=== PATIENT | female | born 1970 | race Two or more races ===

== ENCOUNTER 2024-12-15 14:23 | Outpatient (RCR) | payer MEDICAID, SELFPAY | END 2024-12-16 23:59 | disposition home or self-care (01) | LOC: SCTC 14:23 | PROVIDERS: PCP Family Medicine; Referring Provider Nurse Practitioner Family; Visit Provider Nurse Practitioner Family | DX: D64.9 Anemia, unspecified (principal); E83.52 Hypercalcemia; Z85.3 Personal history of malignant neoplasm of breast; Z90.12 Acquired absence of left breast and nipple; Z63.4 Disappearance and death of family member; E11.22 Type 2 diabetes mellitus with diabetic chronic kidney disease; N18.9 Chronic kidney disease, unspecified | CPT/HCPCS: 99212; G0463 ==

== ENCOUNTER → 2025-01-20 | Outpatient (CLI) | payer MEDICAID, SELFPAY ==
--- NOTE | 2025-01-20 10:30 | XR_ITS ---
Examination: Breast ultrasound, unilateral, right complete Date and time of exam: January 20, 2025 1014 hours INDICATIONS: Breast sonography 07/29/2024 retroareolar oval mass with breast biopsy marker 12 x 12 mm, right breast Technique: Real-time harrell scale ultrasonographic imaging performed right breast including all 4 quadrants as well as nipple retroareolar and axillary region. Findings: 4:00 oval mass lobular margins 4 x 4 millimeter 6:00 oval mass lobular margins 4 x 3 mm 9:00 oval mass circumscribed 4 x 3 mm 10:00 cyst 6 x 5 mm IMPRESSION: BI-RADS Category 3: Probably benign findings One additional 6 month right breast sonogram follow-up is needed to document stability of multiple solid nodules
== END | disposition home or self-care (01) ==
LOC: CDIM 09:57
PROVIDERS: PCP Family Medicine; Referring Provider Nurse Practitioner Family; Visit Provider Nurse Practitioner Family
DX: N63.15 Unspecified lump in the right breast, overlapping quadrants (principal); N63.14 Unspecified lump in the right breast, lower inner quadrant; C50.412 Malignant neoplasm of upper-outer quadrant of left female breast
CPT/HCPCS: 76641

== ENCOUNTER 2025-02-09 14:15 | Outpatient (RCR) | payer MEDICAID, SELFPAY | END 2025-02-13 23:59 | disposition home or self-care (01) | LOC: SCTC 14:15 | PROVIDERS: PCP Family Medicine; Referring Provider Nurse Practitioner Family; Visit Provider Nurse Practitioner Family | DX: C50.412 Malignant neoplasm of upper-outer quadrant of left female breast (principal); Z08 Encounter for follow-up examination after completed treatment for malignant neoplasm; Z85.3 Personal history of malignant neoplasm of breast; Z90.12 Acquired absence of left breast and nipple; Z86.2 Personal history of diseases of the blood and blood-forming organs and certain disorders involving the immune mechanism | CPT/HCPCS: 99212; G0463 ==

== ENCOUNTER 2025-10-01 10:40 | Inpatient (IN) | payer MEDICAID, SELFPAY ==
[2025-10-01] VITALS (8 sets, daily range): BP systolic 120–146; BP diastolic 67–87; PULSE 75–125; RESP 13–99; TEMP 36.1–36.9; O2SAT 96–99; BMI 32.8
--- NOTE | 2025-10-01 10:52 | PD.EDNEURO ---
Neuro Symptoms Deficit-RME/HPI General Chief Complaint: Headache Stated Complaint: LEFT SIDE HEADACHE/NECK SINCE 2299, LEFT HAND NUMB Time Seen by Provider: 10/01/25 11:00 Arrival date/time: 10/01/25 10:40 RME / HPI RME / HPI Narrative: See [facility] for Dr. Mendoza's HPI Documentation. Related Data Home Medications ?Medication ?Instructions ?Recorded ?Confirmed lovastatin 20 mg tablet 20 mg PO HS #0 tabs 10/21/17 10/01/25 allopurinol 300 mg tablet 300 mg PO QDAY 12/25/22 10/01/25 ascorbic acid (vitamin C) 500 mg 500 mg PO QDAY 12/25/22 10/01/25 tablet (Vitamin C) gemfibrozil 600 mg tablet 600 mg PO QDAY 12/25/22 10/01/25 linaclotide 145 mcg capsule 145 mcg PO QDAY 12/25/22 10/01/25 (Linzess) losartan 50 mg tablet 50 mg PO QDAY 12/25/22 10/01/25 vitamin E 100 unit tablet 100 unit PO QDAY 12/25/22 10/01/25 bisoprolol fumarate 5 mg tablet 2.5 mg PO DAILY 10/01/25 10/01/25 dapagliflozin propanediol 10 mg 10 mg PO DAILY 10/01/25 10/01/25 tablet (Farxiga) ergocalciferol (vitamin D2) 1,250 50,000 unit PO QWEEK 10/01/25 10/01/25 mcg (50,000 unit) capsule ferrous sulfate 325 mg (65 mg 325 mg PO DAILY 10/01/25 10/01/25 iron) tablet,delayed release semaglutide 0.25 mg or 0.5 mg (2 0.25 mg subcut QWEEK 10/01/25 10/01/25 mg/3 mL) subcutaneous pen injector (Ozempic) vitamin B comp no.3-folic acid 1 1 tab PO DAILY 10/01/25 10/01/25 mg-vit C 60 mg-biotin 300 mcg tablet ([facility]) Previous Rx's ?Medication ?Instructions ?Recorded pantoprazole 40 mg tablet,delayed 40 mg PO QDAY 30 days #30 tabs 12/25/22 release (Protonix) ibuprofen 800 mg tablet 800 mg PO TID PRN pain #30 tabs 08/20/23 Allergies Allergy/AdvReac Type Severity Reaction Status Date / Time No Known Allergies Allergy Verified 10/01/25 10:48 Review of Systems Review of Systems Systems Reviewed: All systems reviewed, normal except as documented Past Medical History Past Medical History NEUROLOGIC: Positive Neurological Disorders and Migraine (HX) CARDIAC: Positive Cardiac Disorders, Hypercholesterolemia (PO MED) and Hypertension (PO MED) GASTROINTESTINAL: Positive Gastrointestinal Disorders (GASTRITIS) REPRODUCTIVE: Positive Breast Cancer (LEFT) and Previous Pregnancies (P3P3) MUSCULOSKELETAL: Positive Musculoskeletal Disorders, Arthritis (HANDS) and Fractures (left hand) ENT: Positive Ear Infection (as child; had hole in ear left) ENDOCRINE: Positive Endocrine Disorders and Diabetes Mellitus Type 2 (PO MEDS) HEMATOLOGIC: Positive Blood Disorders and Anemia (HX) PSYCHO/SOCIAL: Positive Depression (NO MEDS) OTHER HISTORY: Positive Hospitalization, Chemotherapy (2002), Radiation Therapy (2003), Chicken Pox and Breast Cancer (LEFT) Family History FAMILY HISTORY: Positive Family Gastrointestinal Problems (dad-gallstones), Family Cancer and Family Surgery (dad-gallbladder; mom-hysterectomy); Negative Family Cardiac Disorders Surgical History SURGICAL: Positive Abdominal Surgery, Mastectomy (left WITH LYMPH NODES REMOVED), Hysterectomy (SALPINGOOPHORECTOMY) and Section (X3) Social History SMOKING STATUS: Never smoker SUBSTANCE USE: does not use ALCOHOL: Never ED Exam Narrative Physical exam: See [facility] for Dr. Mendoza's HPI Documentation. Course Quality Measures none Orders Category Date Time Status Bedside Blood Glucose NOW Care 10/01/25 10:53 Active COVID-19 Screening Questionnaire NOW Care 10/01/25 12:05 Active Dog Food Dough Mixer NOW Care 10/01/25 10:53 Active Continuous Pulse Oximetry NOW Care 10/01/25 10:53 Completed Decision to Admit X1 Care 10/01/25 12:05 Completed EKG (ED ONLY) *Do not use* NOW Care 10/01/25 10:53 Completed In and Out Catheter NEEDED Care 10/01/25 10:53 Active Insert IV NOW Care 10/01/25 10:53 Active NIH Stroke Scale now Care 10/01/25 10:53 Active NPO NOW Care 10/01/25 10:53 Active Nurse Swallow Screen x1 Care 10/01/25 10:53 Active Consult to Neurology / Tele-Neurology Routine Cons 10/01/25 10:[address] angio stroke protocol Stat Exams 10/01/25 10:[address] stroke protocol Stat Exams 10/01/25 10:53 Completed EKG (ED Only) Stat Exams 10/01/25 10:53 Draft XR chest 1V portable Stat Exams 10/01/25 10:53 Completed Alcohol, Blood Medical Stat Lab 10/01/25 10:55 Completed Arterial Blood Gas Stat Lab 10/01/25 11:46 Completed B-Type Natriuretic Peptide Stat Lab 10/01/25 10:55 Completed CBC Stat Lab 10/01/25 10:55 Completed Comprehensive Metabolic Panel Stat Lab 10/01/25 10:55 Completed Drug Screen,Urine Stat Lab 10/01/25 14:09 Completed Lipid Panel Stat Lab 10/01/25 10:55 Completed Magnesium Stat Lab 10/01/25 10:55 Completed Partial Thromboplastin Time Stat Lab 10/01/25 10:55 Completed Prothrombin Time with INR Stat Lab 10/01/25 10:55 Completed Troponin I Stat Lab 10/01/25 10:55 Completed Urinalysis, C/S if Indicated Stat Lab 10/01/25 14:09 Completed ACETAMINOPHEN w/COD 300-30 [Tylenol w/Cod #3] Med 10/01/25 11:23 Discontinued 2 tab PO X1 ONE Aspirin [Ecotrin] Med 10/01/25 11:27 Discontinued 81 mg PO X1 ONE Clopidogrel [Plavix] Med 10/01/25 11:27 Discontinued 300 mg PO X1 ONE Labetalol IV [Trandate IV] Med 10/01/25 10:53 Discontinued 10 mg IVP Q15M PRN Ondansetron Inj [Zofran Inj] Med 10/01/25 10:53 Discontinued 4 mg IVP Q4HR PRN Sodium Chloride 0.9% 1000 ml [Ns] 1,000 ml Med 10/01/25 11:00 Discontinued IV 100 mls/hr Oxygen Delivery NOW RT 10/01/25 10:53 Active Vital Signs Vital signs: Vital Signs Temperature 98.4 F 10/01/25 10:53 Pulse Rate 125 H 10/01/25 10:53 Respiratory Rate 18 10/01/25 10:53 Blood Pressure 146/87 H 10/01/25 10:53 Pulse Oximetry (%) 96 10/01/25 10:53 Oxygen Delivery Method Room Air 10/01/25 10:53 Neuro Symptoms / Deficit MDM Narrative MDM Narrative:: This section includes all my notes and documentations, including HPI, PE, and ED course. Miguel Mendoza MD HPI: 55-year-old female here with 12-hour history of severe left-sided headache and left arm weakness and numbness. No speech or visual impairment. No other complaints. ROS: All negative except as documented in HPI. Physical Exam: General: Alert and oriented. Eyes: Conjunctivae and lids clear. EOMI. PERRL. ENT: No nasal congestion. Neck: Supple. No carotid bruit. No JVD. Heart: RRR. Lungs: No respiratory distress. Good air movement. No rhonchi, wheezing, rales. Abdomen: Soft and nontender. Legs: No clubbing, cyanosis, edema. Skin: Warm and dry. Neuro: Alert and oriented X 3. Cranial Nerves II-XII grossly intact. No peripheral motor deficits. I reviewed all diagnostic test results: My interpretation of the EKG: NSR (91 bpm) with no ST-T changes. My interpretation of the chest x-ray is NAD. My review of the CT report is NAD. My review of the CTA report is NAD. Blood tests and urine tests unremarkable. At this point, diagnoses include: Stroke-like symptoms Treatment here included: ASA 81 mg Plavix 30 mg I discussed the case with telehealth neurologist and our hospitalist. About the presentation and exam and diagnostics and treatments here. And need of further care in the hospital. Will accept the patient. Miguel Mendoza MD Patient data External records reviewed:: [facility] previous records Clinical information provided by:: patient and family Social determinants that could affect healthcare access:: none Patient has the following chronic illnesses:: Type 2 diabetes, hypercholesterolemia, and history of left breast cancer in 2003. How is presenting disease/condition affected by chronic disease/condition?: uneffected by Evaluation data The following diagnostics were reviewed and interpreted by me:: lab results, radiology exam(s) and EKG tracing(s) (My interpretation of the EKG: NSR (91 bpm) with no ST-T changes. Miguel Mendoza MD) Lab and/or radiology exams considered but not ordered:: none Interpretation Summary: I reviewed all diagnostic test results: My interpretation of the EKG: NSR (91 bpm) with no ST-T changes. My interpretation of the chest x-ray is NAD. My review of the CT report is NAD. My review of the CTA report is NAD. Blood tests and urine tests unremarkable. Medications / Prescriptions Medications or Prescriptions considered but not ordered:: none Medication administrations:: Medication Administration History Acetaminophen (Acetaminophen 325 Mg Tablet) 650 mg PO Q4H PRN PRN Reason: Fever >100.4 and Pain 1-3 Stop: 10/31/25 12:42 Last Admin: 10/02/25 01:04 Dose: 650 mg Documented By: WB Aspirin (Aspirin Ec 81 Mg Tabec) 81 mg PO QDAY [facility] Stop: 11/01/25 08:59 Atorvastatin Calcium (Atorvastatin Calcium 20 Mg Tablet) 80 mg PO HS [facility] Stop: 10/31/25 20:59 Last Admin: 10/01/25 20:37 Dose: 80 mg Documented By: JOANN Clopidogrel Bisulfate (Clopidogrel Bisulfate 75 Mg Tablet) 75 mg PO QDAY MARA Stop: 11/01/25 08:59 Dextrose (Dextrose 50%-Water Inj 50 Ml Syringe) 25 ml IV Q15MIN PRN PRN Reason: BG 50-70 responsive npo pt Stop: 10/31/25 12:48 Dextrose (Dextrose 50%-Water Inj 50 Ml Syringe) 50 ml IV Q15MIN PRN PRN Reason: BG <50 OR BG <70 & pt unresponsive Stop: 10/31/25 12:48 Glucagon (Glucagon Inj 1 Mg Vial) 1 mg IM Q15MIN PRN PRN Reason: BG <70, and no IV access Heparin Sodium (Porcine) (Heparin Sod Inj 5000 Unit/Ml Vial) 5,000 unit SC Q12HR [facility] Stop: 10/15/25 12:44 Last Admin: 10/01/25 20:37 Dose: 5,000 unit Documented By: JOANN Co-signed By: Admin: 10/01/25 13:19 Dose: 5,000 unit Documented By: EF Co-signed By: SM Insulin Human Lispro (Insulin Lispro (Admelog) 1 Unit/0.01 Ml Unit) 0 unit SC Q6HR [facility]; Protocol Stop: 10/31/25 17:59 Last Admin: 10/02/25 00:50 Dose: Not Given Documented By: WB Non-Admin Reason: Per Protocol Admin: 10/01/25 17:24 Dose: Not Given Documented By: CP Non-Admin Reason: Per Protocol Labetalol HCl (Labetalol Inj 5 Mg/Ml Vial 20 Ml) 10 mg IVP Q6H PRN PRN Reason: SBP> 220, DBP >120 Stop: 10/31/25 12:51 Lorazepam (Lorazepam 0.5 Mg Tablet) 1 mg PO Q8HR PRN PRN Reason: Anxiety Stop: 10/06/25 14:27 Ondansetron HCl (Ondansetron Inj 2 Mg/Ml Inj 2 Ml) 4 mg IVP Q6H PRN; Protocol PRN Reason: NAUSEA OR VOMITING Stop: 10/31/25 12:42 Pantoprazole Sodium (Pantoprazole Inj 40 Mg Vial) 40 mg IVP QDAY [facility]A Stop: 10/31/25 12:44 Last Admin: 10/01/25 13:18 Dose: 40 mg Documented By: EF Sennosides (Senna Tablet) 1 tab PO QDAY MARA; Protocol Stop: 11/01/25 08:59 Discontinued Medications Acetaminophen (Acetaminophen 325 Mg Tablet) 650 mg PO Q6H PRN PRN Reason: Fever >100.4 and Pain 1-3 Stop: 10/31/25 12:42 Last Admin: 10/01/25 20:00 Dose: 650 mg Documented By: WB Acetaminophen/Codeine Phosphate (Acetaminophen W/Cod 300-30 Tablet) 2 tab PO X1 ONE Stop: 10/01/25 11:24 Last Admin: 10/01/25 11:36 Dose: 2 tab Documented By: EF Aspirin (Aspirin Ec 81 Mg Tabec) 81 mg PO X1 ONE Stop: 10/01/25 11:28 Last Admin: 10/01/25 11:37 Dose: 81 mg Documented By: EF Clopidogrel Bisulfate (Clopidogrel Bisulfate 75 Mg Tablet) 300 mg PO X1 ONE Stop: 10/01/25 11:28 Last Admin: 10/01/25 11:37 Dose: 300 mg Documented By: EF Sodium Chloride (Ns) 1,000 mls @ 100 mls/hr IV .Q10H MARA Stop: 10/01/25 20:59 Last Admin: 10/01/25 11:37 Dose: 100 mls/hr Documented By: ROBIN Acetaminophen (Ofirmev Inj) 1,000 mg in 100 mls @ 250 mls/hr IV X1 ONE Stop: 10/01/25 13:12 Last Infusion: 10/01/25 13:42 Dose: Infused Documented By: Admin: 10/01/25 13:18 Dose: 250 mls/hr Documented By: ROBIN Influenza Virus Vaccine Quadrival (Influenza Virus 0.5 Ml Syringe ) 0.5 ml IMi .ONCE ONE Stop: 10/01/25 17:39 Labetalol HCl (Labetalol Inj 5 Mg/Ml Vial 20 Ml) 10 mg IVP Q15M PRN PRN Reason: HYPER Ondansetron HCl (Ondansetron Inj 2 Mg/Ml Inj 2 Ml) 4 mg IVP Q4HR PRN PRN Reason: NAUSEA OR VOMITING Stop: 10/31/25 10:52 Last Admin: 10/01/25 11:37 Dose: 4 mg Documented By: ROBIN Treatment here from included: ASA 81 mg Plavix 30 mg Consultations Consultation(s) initiated? (list below): Yes Consultation #1 (Physician, Specialty, Details): I discussed the case with telehealth neurologist and our hospitalist. About the presentation and exam and diagnostics and treatments here. And need of further care in the hospital. Will accept the patient. Diagnosis Neuro Differential Diagnosis: other (Stroke, migraine, and TIA.) Most likely diagnosis given after review of the tests above:: Stroke-like symptoms Admission Indicated Admission indicated?: indicated Explain why admission is indicated or not indicated:: Strokelike symptoms Admission Request Was there a request for admission?: Yes Admission Attestation Admission request attestation: Discussed case with Hospitalist service regarding admission. Discussed patients ED course, exam findings, labs, and radiology results. Agreeed to accept the patient for admission. Disposition Plan Disposition Plan: Admit Critical Care Time Critical Care Time Critical Care Time: Yes Total Critical Care Time (min.): 36 Attestation: Due to a high probability of clinically significant, life threatening deterioration, the patient required my highest level of preparedness to intervene emergently and I personally spent this critical care time directly and personally managing the patient. This critical care time included obtaining a history; examining the patient; ordering and review of studies; arranging urgent treatment with development of a management plan; evaluation of patient's response to treatment; frequent reassessment; and discussions with family and other providers. It was exclusive of separately billable procedures and treating other patients and teaching time. Miguel Mendoza MD Discharge Plan Plan Patient Disposition: Admit Acute Care w/in Hospital Problem List Clinical Impression: Stroke-like symptoms
--- NOTE | 2025-10-01 10:53 | EKG_ITS ---
[facility] Test Date: 2025-10-01 Pat Name: CHERI LUGO Department: Room: - Gender: Female Platform Consultant: : 1970 Requested By: Miguel Davison Order Number: [id number] Reading MD: Miguel Davison Measurements Intervals [place] Rate: 91 P: 40 NM: 153 QRS: 25 QRSD: 79 T: 23 QT: 337 QTc: 416 Interpretive Statements SINUS RHYTHM Compared to ECG 07/28/2022 11:14:50 No significant changes /store/S0/[id number]/ecg/[id number].pdf
--- NOTE | 2025-10-01 10:53 | XR_ITS ---
EXAMINATION: AP chest single view TECHNIQUE: AP portable semiupright chest single view Date and time: October 01, 2025, 11:30 a.m., comparison January 17, 2019 INDICATIONS: Shortness of breath today. FINDINGS: Normal heart size Mild vascular congestion. No lobar pneumonia or pulmonary edema Moderate osteopenia IMPRESSION: Mild vascular congestion No lobar pneumonia or pulmonary edema
--- NOTE | 2025-10-01 10:53 | XR_ITS ---
Examination: CT brain head without contrast. 2-D sagittal coronal reconstructions Date and time of exam: October 01, 2025, 11:00 a.m. INDICATIONS: Stroke alert, onset focal neurologic deficit including left-sided headache left arm numbness and weakness, hypertension today CTDI: vol (mGy): 51.3 DLP: (mGycm): 1009 Technique: Multiple CT axial sections of the brain have been obtained, 5 mm slice thickness. Contrast has not been administered. 2-D sagittal, coronal reconstructions have been obtained Low dose protocols were performed. One or more of the following dose reduction techniques were used; automated exposure control, adjustment of the mA and/or KV according to patient size, use of iterative reconstruction technique. Findings: No significant ventricular enlargement. Intra-axial or extra-axial hemorrhage density is not seen. No mass effect or midline shift Basal cisterns are not remarkable. Fourth ventricle is midline. Cranial vault intact. Impression: Negative for acute hemorrhage, mass effect or midline shift Advise clinical correlation and follow-up accordingly
--- NOTE | 2025-10-01 10:53 | XR_ITS ---
Examination: CTA carotids with intravenous contrast CTA brain, head with intravenous contrast. 2-D sagittal, coronal reconstructions. 3-D reconstructions. Exam date and time: October 01, 2025, 11:14 a.m. INDICATIONS: Stroke alert, onset left-sided body weakness and numbness beginning 2300 hours last night CTDI: vol (mGy) 20.4 DLP: (mGycm) 434 Technique: Multiple CTA axial brain, head carotid images post intravenous contrast injection 75 cc, [id number]. 2-D sagittal, coronal reconstructions. 3-D reconstructions, 3-D post processing including vascular maximum intensity projection images. Low dose protocols were performed. One or more of the following dose reduction techniques were used; automated exposure control, adjustment of the mA and/or KV according to patient size, use of iterative reconstruction technique. Findings: No significant common carotid carotid bifurcation or internal carotid artery stenoses Mildly dominant right vertebral artery in the neck no critical stenoses Intracranial vertebral arteries basilar artery and posterior cerebral branches fill without large vessel occlusions Petrous juxtasellar portions internal carotid arteries intact No large vessel occlusions involving middle cerebral or anterior cerebral arteries IMPRESSION: No significant neck arterial stenoses No cerebral large vessel arterial occlusions or thrombus
--- NOTE | 2025-10-01 11:28 | PD.TNEURO ---
Tele Neuro Consultation Consultation Date 10/01/25 Most Recent Vital Signs Last Vital Signs Temp 98.4 F 10/01/25 10:53 Pulse 125 H 10/01/25 10:53 Resp 18 10/01/25 10:53 BP 146/87 H 10/01/25 10:53 Pulse Ox 96 10/01/25 10:53 O2 Del Method Room Air 10/01/25 10:53 Consultation Narrative [facility] Tele[facility]urology Consult Services Patient Name:???Ivette Cheung Date of :???1970 Identification Number:??? Date of Service:???10/01/2025 11:03:45 Diagnosis:?I63.89 - Cerebrovascular accident (CVA) due to other mechanism (HCCC) ?G44.201 - Headache (if no chronic) Impression: ?55-year-old female with history of hypertension and breast cancer (in remission) who presents with headache x 3 days and new neuro deficits since 11 PM on 09/30/2025. She was reporting left arm numbness and weakness as well L sided headache and neck pain. NIHSS is currently 3 for left-sided sensory loss, pain limited range of motion and drift of the left upper extremity, and she did not know her age. Denies history of stroke or brain mets. ?CT head with hypodensity in the R frontoparietal region, age indeterminate. She is not a tenecteplase candidate given she is outside the time window. 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 ?With a hypodensity on her head CT as well as her breast cancer history and history of hypertension, recommend admission to rule out acute ischemic stroke as well as potential intracranial metastatic disease, though it seems that she is currently in remission. Our recommendations are outlined below. Recommendations: ? Stroke/Telemetry Floor ? Neuro Checks (Q4) ? Bedside Swallow Eval ? DVT Prophylaxis ? IV Fluids, Normal Saline ? Head of Bed 30 Degrees ? Euglycemia and Avoid Hyperthermia (PRN Acetaminophen) ? Bolus with Clopidogrel 300 mg bolus x1 and initiate dual antiplatelet therapy with Aspirin 81 mg daily and Clopidogrel 75 mg daily ? Antihypertensives PRN if Blood pressure is greater than 220/120 or there is a concern for End organ damage/contraindications for permissive HTN. If blood pressure is greater than 220/120 give labetalol PO or IV or Vasotec IV with a goal of 15% reduction in BP during the first 24 hours. ?MRI brain with and without contrast ?Labs: lipid panel and hemoglobin A1C if not done within last 90 days ?Statin therapy if LDL > 70 ?TTE with bubble ?Holter monitor at discharge to assess for A-fib ?PT/OT/Speech Sign Out: ? Discussed with Emergency Department Provider Advanced Imaging:CTA Head and Neck Completed. LVO:No Patient is not a candidate for IVÁN Metrics: Last Known Well: 09/30/2025 23:00:00 Arrival Time: 10/01/2025 10:40:00 Initial Response Time: 10/01/2025 11:05:29Symptoms: severe L sided headache, L arm numbness and weakness. Initial patient interaction: 10/01/2025 11:16:38 NIHSS Assessment Completed: 10/01/2025 11:20:18Patient is not a candidate for Thrombolytic. Thrombolytic Medical Decision: 10/01/2025 11:21:06Patient was not deemed candidate for Thrombolytic because of following reasons: LKW outside 4.[address] Head: I personally reviewed all the CT images that were available to me and it showed: hypodensity in the right frontoparietal region, age indeterminate. calfication in the R occipital region. Primary Provider Notified of Diagnostic Impression and Management Plan on: 10/01/2025 11:25:07 History of Present Illness:Patient is a 55 year old Female. Patient was brought by private transportation with symptoms of severe L sided headache, L arm numbness and weakness. Coming in from home with reports of ongoing headache and new neuro deficits. She reports CRUZ x 3 days - started having L sided sensory deficits and weakness last night at 2300. She has no history of stroke, currently has breast cancer and HTN. Denies blood thinners. Has not experienced these symptoms previously. ? Past Medical History: ?Hypertension ?There is no history of Stroke Other PMH:? breast cancer (in remission) Medications: No Anticoagulant use? No Antiplatelet use Reviewed EMR for current medications Allergies:? Reviewed Social History: Smoking: No Family History: There is no family history of premature cerebrovascular disease pertinent to this consultation ROS : 14 Points Review of Systems was performed and was negative except mentioned in HPI. Past Surgical History: There Is No Surgical History Contributory To Today?s Visit ? Examination: BP(146/87),?Pulse(116),?Blood Glucose(96) 1A: Level of Consciousness - Alert; keenly responsive?+ 0 1B: Ask Month and Age - 1 Question Right?+ 1 1C: Blink Eyes & Squeeze Hands - Performs Both Tasks?+ 0 2: Test Horizontal Extraocular Movements - Normal?+ 0 3: Test Visual Maddox - No Visual Loss?+ 0 4: Test Facial Palsy (Use Grimace if Obtunded) - Normal symmetry?+ 0 5A: Test Left Arm Motor Drift - Drift, but doesn't hit bed?+ 1 5B: Test Right Arm Motor Drift - No Drift for 10 Seconds?+ 0 6A: Test Left Leg Motor Drift - No Drift for 5 Seconds?+ 0 6B: Test Right Leg Motor Drift - No Drift for 5 Seconds?+ 0 7: Test Limb Ataxia (FNF/Heel-Moore) - No Ataxia?+ 0 8: Test Sensation - Mild-Moderate Loss: Less Sharp/More Dull?+ 1 9: Test Language/Aphasia - Normal; No aphasia?+ 0 10: Test Dysarthria - Normal?+ 0 11: Test Extinction/Inattention - No abnormality?+ 0 NIHSS Score:?3 NIHSS Free Text :?pain limited ROM of the LUE, sensory loss on the L face and arm. Pre-Morbid Modified Blaine Scale: 0 Points = No symptoms at all Spoke with :?Miguel Mendoza This consult was conducted in real time using interactive audio and video technology. Patient was informed of the technology being used for this visit and agreed to proceed. Patient located in hospital and provider located at home/office setting. Patient is being evaluated for possible acute neurologic impairment and high probability of imminent or life-threatening deterioration. I spent total of 35 minutes providing care to this patient, including time for face to face visit via telemedicine, review of medical records, imaging studies and discussion of findings with providers, the patient and/or family. Dr Heidi Alarcon [facility] For Inpatient follow-up with [facility] physician please call [facility] at . As we are not an outpatient service for any post hospital discharge needs please contact the hospital for assistance. If you have any questions for the [facility] physicians or need to reconsult for clinical or diagnostic changes please contact us via [facility] at . Non-radiologist review of imaging performed to assist with emergent clinical decision-making. Remote physician workstations do not possess the same resolution, calibration, or diagnostic capabilities as hospital-based radiology reading stations, and formal radiologist read is necessary. Signature :Yariel Alarcon ?
[2025-10-01 11:29] LABS: B-Type Natriuretic Peptide < 20 pg/mL (0-100)
[2025-10-01 11:35] LABS: Alanine Aminotransferase 15 U/L (10-49); Albumin, Serum 5.2 gm/dL (3.5-5.0); Albumin/Globulin Ratio 2.2 (1.2-2.2); Alcohol, Blood Medical < 3.0 mg/dL (0-10.0); Alkaline Phosphatase 114 U/L (46-116); Anion Gap 12 (7-16); Aspartate Amino Transferase 21 U/L (0-34); BUN/Creatinine Ratio 11 Ratio (12-20); Bilirubin,Total 0.4 mg/dL (0.3-1.2); Blood Urea Nitrogen 17 mg/dL (9-23); Calcium 9.8 mg/dL (8.3-10.6); Calcium (Corrected) 9.8 mg/dL (8.5-10.1); Carbon Dioxide 21.4 mMol/L (20.0-31.0); Chloride 109 mMol/L (98-107); Creatinine (Component) 1.6 mg/dL (0.6-1.3); Estimated Creatinine Clearance 35.4 mL/min (>60); Globulin 2.4 gm/dL (2.3-3.5); Glucose 105 mg/dL (74-106); Magnesium 2.0 mg/dL (1.6-2.6); Osmolality,Calculated 284 (275-295); Potassium 4.4 mMol/L (3.4-5.1); Sodium 142 mMol/L (136-145); Total Protein 7.6 gm/dL (5.7-8.2); Troponin I < 0.020 ng/mL (0.0-0.045); eGFR 37 See Note
[2025-10-01] MEDS: ACETAMINOPHEN w/COD 300-30 TABLET 2 TAB PO (11:36)
[2025-10-01] MEDS: ONDANSETRON INJ 2 MG/ML INJ 2 ML 4 MG IVP (11:37)
[2025-10-01] MEDS: SODIUM CHLORIDE 0.9% 1000 ML 1,000 ML 100 ML IV (11:37)
[2025-10-01] MEDS: ASPIRIN EC 81 MG TABEC PO (11:37)
[2025-10-01] MEDS: CLOPIDOGREL BISULFATE 75 MG TABLET 300 MG PO (11:37)
[2025-10-01 11:41] LABS: INR 1.0 (0.9-1.3); Partial Thromboplastin Time 32.9 Seconds (22.0-36.0); Prothrombin Time 10.3 Seconds (9.0-12.2)
[2025-10-01 11:44] LABS: Basophils # (Auto) 0.0 Thou/mm3 (0.0-0.2); Basophils % (Auto) 0 % (0-2.5); Eosinophils # (Auto) 0.1 Thou/mm3 (0.0-0.5); Eosinophils % (Auto) 2 % (0-10); Hematocrit 36.5 % (36.0-46.0); Hemoglobin 12.5 g/dL (12.0-16.0); Immature Granulocytes Auto 0.01 Thou/mm3 (0.00-0.00); Lymphocytes # (Auto) 2.3 Thou/mm3 (1.0-4.8); Lymphocytes % (Auto) 40 % (10-50); Mean Corpuscular HGB Conc 34.2 g/dl (31.0-37.0); Mean Corpuscular Hemoglobin 30.3 pg (25.0-35.0); Mean Corpuscular Volume 88 fL (80-100); Monocytes # (Auto) 0.4 Thou/mm3 (0.0-0.8); Monocytes % (Auto) 6 % (0-12); Neutrophils # (Auto) 3.0 Thou/mm3 (1.8-7.7); Neutrophils % (Auto) 52 % (37-80); Nucleated Red Blood Cell # 0.00 Thou/mm3 (0.00-0.00); Nucleated Red Blood Cell % 0 /100 WBC (0); Platelet Count 282 Thou/mm3 (140-440); RDW Standard Deviation 41.4 fL (36.4-46.3); Red Blood Count 4.13 Miln/mm3 (4.00-5.20); White Blood Count 5.8 Thou/mm3 (3.6-11.0)
[2025-10-01 11:50] LABS: Allen Test Performed/OK; Base Excess -4 (-3-3); HCO3 21 mEq/L (20-26); Inspired Oxygen, FIO2 21 %; O2 Saturation 99 % (91-98); PCO2 39 mmHg (32.0-48.0); PO2 77 mmHg (83-108); Puncture Site Right Radial; pH, Arterial 7.35 (7.35-7.45)
--- NOTE | 2025-10-01 12:43 | ECHO_ITS ---
Patient Info Name: Ivette Cheung Age: 55 years : 1970 Gender: Female Ht: 152 cm Wt: 76 kg BSA: 1.83 m2 BP: 162 / 71 mmHg HR: 86 bpm Heart Rhythm: Sinus Rhythm Exam Date: 10/02/2025 9:38 AM Admit Date: 10/01/2025 Site: [facility] Room Number: [id number] Patient Status: I Technical Quality: Good Exam Type: CA echo doppler complete Skin Care Therapist: Rosa Brady Ordering Physician: Marilia Guzman Study Info Indications CVA Protocol w bubble study please - Contrast/Agitated Saline Contrast/Ag. Saline: Agitated Saline Amount: --- ml Primary Location: S2NX Left Ventricular Outflow Tract Name Value Normal LVOT 2D LVOT Diameter 1.8 cm LVOT Doppler LVOT Peak Velocity 132 cm/s LVOT Mean Gradient 4 mmHg LVOT VTI 29 cm LVOT VTI/AV VTI Ratio 0.8 LVOT Stroke Volume 74 ml Pulmonic Valve Name Value Normal PV Doppler PV Peak Velocity 115 cm/s Mitral Valve Name Value Normal MV Doppler MV Decel [place] 487 cm/s2 MV PHT 33 ms MV Area (PHT) 6.7 cm2 4.0-5.0 MV Diastolic Function MV E Peak Velocity 55 cm/s MV A Peak Velocity 89 cm/s MV E/A 0.6 MV Annular TDI MV Lateral e' Velocity 9.4 cm/s MV E/e' (Lateral) 5.9 Tricuspid Valve Name Value Normal TV Regurgitation Doppler TR Peak Velocity 228 cm/s Estimated PAP/RSVP RA Pressure 3 mmHg <=5 PA Systolic Pressure 24 mmHg <36 RV Systolic Pressure 24 mmHg <36 Aortic Valve Name Value Normal AV 2D/MM AV Cusp Sep (MM) 0.9 cm AV Doppler AV Peak Velocity 204 cm/s AV Mean Gradient 8 mmHg AV VTI 37 cm AV Area (Cont Eq VTI) 2.0 cm2 >=3.0 AV Area (Cont Eq Mark) 1.6 cm2 AV DI (Mark) 0.65 AV Regurgitation 2D LVOT Area 2.5 cm2 Ventricles Name Value Normal LV Dimensions 2D/MM IVS Diastolic Thickness (2D) 0.8 cm 0.6-0.9 LVID Diastole (2D) 4.0 cm 3.8-5.2 LVIW Diastolic Thickness (2D) 1.0 cm 0.6-0.9 LVID Systole (2D) 2.6 cm 2.2-3.5 LVOT Diameter 1.8 cm LV Mass (2D Cubed) 109.69 g 67.00-162.00 LV Mass Index (2D Cubed) 60 g/m2 43-95 Relative Wall Thickness (2D) 0.50 <=0.42 IVS/LVIW Diastolic Thickness (2D) 0.80 0.00-1.50 LV Fractional Shortening/Ejection Fraction 2D/MM LV Fractional Shortening (2D) 35 % 27-45 LV EF (2D Teichholz) 65 % Atria Name Value Normal LA Dimensions LA Volume (4C A-L) 47 ml LA Volume (BP A-L) 52 ml Left Ventricle Left ventricular chamber dimension is normal. Left ventricular systolic function is normal with visually estimated ejection fraction of 60-65%. There is concentric remodeling noted in the left ventricle. Left ventricular segmental wall motion is normal. There is grade I diastolic dysfunction in the left ventricle. Right Ventricle Right ventricular chamber dimension is normal. Right ventricular systolic function is normal. Left Atrium Left atrial chamber dimension is normal. Right Atrium Right atrial chamber dimension is normal. Aortic Valve The aortic valve is trileaflet. There is no aortic valve sclerosis. There is no aortic valve stenosis with a peak velocity of 204 cm/s, mean gradient of 8 mmHg, and aortic valve area of 2.0 cm2. There is no aortic valve regurgitation. Pulmonic Valve The pulmonic valve is normal. There is no pulmonic valve stenosis. There is no pulmonic regurgitation. Mitral Valve The mitral valve has normal leaflets. There is no mitral valve stenosis. There is no mitral valve regurgitation. Tricuspid Valve The tricuspid valve leaflets are normal. There is no tricuspid valve stenosis. There is trace tricuspid valve regurgitation. No pulmonary hypertension, estimated pulmonary arterial systolic pressure is 24 mmHg and systemic blood pressure of 162 mmHg in systole. Pericardium/Pleural The pericardium appears normal. There is no pericardial effusion. No pleural effusion visualized. Inferior Vena Cava Normal inferior vena cava with >50% collapse upon inspiration consistent with normal right atrial pressure, 3 mmHg. Aorta The aortic measurements are indexed to age and body surface area. The aortic root at the sinus of Valsalva is not well visualized. The prox ascending aorta is not well visualized. Summary 1. Left ventricle size is normal and systolic function is normal. Estimated ejection fraction is 60-65%. There is grade I diastolic dysfunction. 2. Right ventricle chamber size is normal and systolic function is normal. Estimated RVSP is 24 mmHg. 3. There is trace tricuspid valve regurgitation. 4. Normal IVC with estimated RA pressure 3 mmHg. 5. Negative bubble study. Report Signatures Finalized by Ariel Em on 10/02/2025 05:03 PM
--- NOTE | 2025-10-01 13:09 | ESHP_ITS ---
Documentation for date of: 10/01/25 HPI History of Present Illness History of present illness: Ms. Cheung is a 55-year-old female with past medical history of left breast cancer status post mastectomy, chemotherapy and radiation therapy, hypertension, hypertriglyceridemia, type 2 diabetes mellitus and anxiety who presented to [facility] emergency department on 10/01/2025 with a chief complaint of left-sided headache, neck pain, left arm numbness and weakness. Patient reported that her symptoms started around 3 days ago have been progressively worsening, complains of blurriness in the left vision as well uses glasses, denies any vision loss. Patient also complains of generalized fatigue and weakness for the last week, reports 20 pound weight loss in the last 6 months and somewhat decreased appetite however attributed to semaglutide. Patient also complains of some dysphagia, reports that after eating it feels that the food is stuck in her throat at times. Patient currently complains of a headache as well. She denies any falls, palpitations, nausea, vomiting, diarrhea and shortness of breath. Patient follows up with electronic integrated systems mechanic Dr. 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 PCP [facility]. ED Course: ED Vitals: On presentation in ED blood pressure 146/87, heart rate 125, respiratory rate 18, temp 98.4, O2 sat 96 on room air ED Labs: ER labs pertinent for fingerstick blood glucose 71, CBC within normal limits, coags within normal limits, ABG shows pH 7.35, pCO2 39 and CMP remarkable for chloride 109, creatinine 1.6, GFR 37, BUN 17, albumin 5.2, cholesterol 237, LDL 168, HDL 48. Urinalysis negative for signs of infection blood alcohol level negative, urine tox screen is pending ED Imaging: Chest x-ray in ED negative for pneumonia, shows mild vascular congestion, CT head negative for any acute hemorrhage mass effect or midline shift CTA negative for any large vessel occlusion or thrombus EKG shows sinus rhythm, QTc 416 ED Treatment: Patient was given acetaminophen/codeine phosphate 2 tablets p.o. x 1, Zofran 4 mg x 1, started on NS maintenance fluid, aspirin 81 mg, Plavix 300 mg. Patient will be admitted to hospital for CVA workup. Review of Systems Review of Systems Narrative Review of Systems: ROS: -CONSTITUTIONAL: Positive for weight loss 20 pounds in 6 months, denies fever and chills. -HEENT: Positive for blurring of vision in left eye uses glasses, no changes in hearing. -RESPIRATORY: Denies SOB and cough. -CV: Denies palpitations and Chest Pain. -GI: Denies abdominal pain, nausea, vomiting,constipation and diarrhea. -: Denies dysuria and urinary frequency. -MSK: Denies myalgia and joint pain. -SKIN: Denies rash and pruritus. -NEUROLOGICAL: Positive for headache and denies syncope. -PSYCHIATRIC: Denies recent changes in mood. Denies anxiety and depression. Past Medical History Past Medical History Comments PMH COMMENT: PMH: As above PSHx: Mastectomy, hysterectomy, 3 sections, hernia surgery Allergies: No known drug and food allergies Social history: -Smoking: Denies -Alcohol Use: Denies -Illicit Drug Use: Denies -Martial Status: Family History: No family history of breast ovarian or colon cancer Exam Vital Signs Temp Pulse Resp BP Pulse Ox O2 Del Method 98.4 F 83 14 146/87 H 96 Room Air 10/01/25 10:53 10/01/25 12:55 10/01/25 12:55 10/01/25 10:53 10/01/25 12:55 10/01/25 10:53 Narrative Exam Physical Exam General: Awake and in no acute distress. Conversational and non-toxic appearing. HEENT: Normocephalic, atraumatic, mucous membranes moist. Heart: Regular rate and rhythm, no murmurs. Lungs: Clear to auscultation with no wheezing or crackles. Abdomen: Soft, obese, nondistended, nontender, positive bowel sounds. ?No guarding or rebound tenderness. Neurologic: Alert and oriented x3, left upper extremity weakness noted, and patient able to move all 4 extremities. Positive complaint for blurriness of vision left eye doesn't have glasses, no visual deficit. Extremities: No edema. Skin: No rash or ecchymoses. Results: Labs 10/01/25 10:55 10/01/25 10:55 Labs: Short CBC 10/01/25 Range/Units 10:55 WBC 5.8 (3.6-11.0) Thou/mm3 Hgb 12.5 (12.0-16.0) g/dL Hct 36.5 (36.0-46.0) % Plt Count 282 (140-440) Thou/mm3 BMP 10/01/25 10:55 Sodium 142 Potassium 4.4 Chloride 109 H Carbon Dioxide 21.4 BUN 17 Creatinine 1.6 H Glucose 105 Calcium 9.8 Cardiac Enzymes 10/01/25 Range/Units 10:55 Troponin I < 0.020 (0.0-0.045) ng/mL Liver Function 10/01/25 Range/Units 10:55 Total Bilirubin 0.4 (0.3-1.2) mg/dL AST 21 (0-34) U/L ALT 15 (10-49) U/L Alkaline Phosphatase 114 (46-116) U/L Albumin 5.2 H (3.5-5.0) gm/dL ABG Interpretation ABG results: 10/01/25 11:46 ABG pH 7.35 ABG pCO2 39 ABG pO2 77 L ABG HCO3 21 ABG O2 Saturation 99 H ABG Base Excess -4 L Quality Measures Quality Measures none Medications Home Medications and Allergies Home Medications ?Medication ?Instructions ?Recorded ?Confirmed ?Type lovastatin 20 mg tablet 20 mg PO HS #0 tabs 10/21/17 12/24/22 History allopurinol 300 mg tablet 300 mg PO QDAY 12/25/2208/08 History ascorbic acid (vitamin C) 500 mg 500 mg PO QDAY 12/25/22 History tablet (Vitamin C) gemfibrozil 600 mg tablet 600 mg PO QDAY 12/25/2208/08 History linaclotide 145 mcg capsule 145 mcg PO QDAY 12/25/22 0 12/25/22 History (Linzess) losartan 50 mg tablet 50 mg PO QDAY 12/25/2212/25 History metformin 1,000 mg tablet 1,000 mg PO QDAY 12/25/22 History vitamin E 100 unit tablet 100 unit PO QDAY 12/25/22 History Allergies Allergy/AdvReac Type Severity Reaction Status Date / Time No Known Allergies Allergy Verified 10/01/25 10:48 Visit Medications Acetaminophen (Acetaminophen 325 Mg Tablet) 650 mg PO Q6H PRN PRN Reason: Fever >100.4 and Pain 1-3 Stop: 10/31/25 12:42 Aspirin (Aspirin Ec 81 Mg Tabec) 81 mg PO QDAY [facility] Stop: 11/01/25 08:59 Clopidogrel Bisulfate (Clopidogrel Bisulfate 75 Mg Tablet) 75 mg PO QDAY MARA Stop: 11/01/25 08:59 Dextrose (Dextrose 50%-Water Inj 50 Ml Syringe) 25 ml IV Q15MIN PRN PRN Reason: BG 50-70 responsive npo pt Stop: 10/31/25 12:48 Dextrose (Dextrose 50%-Water Inj 50 Ml Syringe) 50 ml IV Q15MIN PRN PRN Reason: BG <50 OR BG <70 & pt unresponsive Stop: 10/31/25 12:48 Glucagon (Glucagon Inj 1 Mg Vial) 1 mg IM Q15MIN PRN PRN Reason: BG <70, and no IV access Heparin Sodium (Porcine) (Heparin Sod Inj 5000 Unit/Ml Vial) 5,000 unit SC Q12HR MARA Stop: 10/15/25 12:44 Sodium Chloride (Ns) 1,000 mls @ 100 mls/hr IV .Q10H [facility] Stop: 10/01/25 20:59 Last Admin: 10/01/25 11:37 Dose: 100 mls/hr Acetaminophen (Ofirmev Inj) 1,000 mg in 100 mls @ 250 mls/hr IV X1 ONE Stop: 10/01/25 13:12 Insulin Human Lispro (Insulin Lispro (Admelog) 1 Unit/0.01 Ml Unit) 0 unit SC Q6HR MARA; Protocol Stop: 10/31/25 17:59 Labetalol HCl (Labetalol Inj 5 Mg/Ml Vial 20 Ml) 10 mg IVP Q6H PRN PRN Reason: SBP> 220, DBP >120 Stop: 10/31/25 12:51 Ondansetron HCl (Ondansetron Inj 2 Mg/Ml Inj 2 Ml) 4 mg IVP Q6H PRN; Protocol PRN Reason: NAUSEA OR VOMITING Stop: 10/31/25 12:42 Pantoprazole Sodium (Pantoprazole Inj 40 Mg Vial) 40 mg IVP QDAY MARA Stop: 10/31/25 12:44 Sennosides (Senna Tablet) 1 tab PO QDAY MARA; Protocol Stop: 11/01/25 08:59 Discontinued Medications Acetaminophen/Codeine Phosphate (Acetaminophen W/Cod 300-30 Tablet) 2 tab PO X1 ONE Stop: 10/01/25 11:24 Last Admin: 10/01/25 11:36 Dose: 2 tab Aspirin (Aspirin Ec 81 Mg Tabec) 81 mg PO X1 ONE Stop: 10/01/25 11:28 Last Admin: 10/01/25 11:37 Dose: 81 mg Clopidogrel Bisulfate (Clopidogrel Bisulfate 75 Mg Tablet) 300 mg PO X1 ONE Stop: 10/01/25 11:28 Last Admin: 10/01/25 11:37 Dose: 300 mg Labetalol HCl (Labetalol Inj 5 Mg/Ml Vial 20 Ml) 10 mg IVP Q15M PRN PRN Reason: HYPER Ondansetron HCl (Ondansetron Inj 2 Mg/Ml Inj 2 Ml) 4 mg IVP Q4HR PRN PRN Reason: NAUSEA OR VOMITING Stop: 10/31/25 10:52 Last Admin: 10/01/25 11:37 Dose: 4 mg Assessment & Plan Plan Assessment and Plan: Summary: Ms. Cheung is a 55-year-old female with past medical history of left breast cancer status post mastectomy, chemotherapy and radiation therapy, hypertension, hypertriglyceridemia, type 2 diabetes mellitus and anxiety who presented to [facility] emergency department on 10/01/2025 with a chief complaint of left-sided headache, neck pain, left arm numbness and weakness. Patient admitted for CVA workup. #CVA workup #Left-sided headache, left upper extremity weakness Complaints of left-sided headache, neck pain, left arm numbness and weakness since 3 days, progressive and blurring of vision left eye doesn't have glasses currently, denies any vision loss. Also complains of generalized fatigue and weakness for the last week, reports 20 pound weight loss in the last 6 months and somewhat decreased appetite however attributed to semaglutide. Patient has history of diabetes mellitus, hypertriglyceridemia and hypertension. 10/01-Cholesterol 237, LDL 168, HDL 48. On bisoprolol 5 mg for hypertension. On semaglutide and Farxiga [address] head negative for any acute hemorrhage mass effect or midline shift CTA negative for any large vessel occlusion or thrombus EKG shows sinus rhythm, QTc 416 Teleneurology consulted in ED, stroke workup initiated, was given acetaminophen/codeine phosphate 2 tablets p.o. x 1, Zofran 4 mg x 1, started on NS maintenance fluid, aspirin 81 mg, Plavix 300 mg. Plan: - DAPT, aspirin 81 mg daily and Plavix 75 mg daily - Ordered MR stroke protocol with and without contrast, echocardiogram with bubble study - Tylenol as needed for headache - Atorvastatin 80 mg p.o. at bedtime - Permissive hypertension, labetalol 10 mg every 6 hours for SBP greater than 220/DBP greater than 120 - 1 L NS maintenance fluid - Follow TSH/free T4/A1c in a.m. - Neurology consulted, appreciate recommendations - Neuro swallow screen, n.p.o., referral to speech therapy - Referral to physical therapy - Heparin for DVT prophylaxis #Dysphagia Reports that she has feeling of food getting stuck in her throat. Did receive radiation therapy in the past for breast cancer. - Speech therapy evaluation #CKD stage IIIa Patient on presentation BUN 17, creatinine 1.6, GFR 37. Baseline GFR 45, creatinine 1.4. Follows Dr. Alexandra electronic integrated systems mechanic outpatient. - 1 L NS maintenance fluid - Strict intake and output - Avoid nephrotoxic agents, renally dose medication #Dyslipidemia, hypercholesterolemia Patient's cholesterol 237, LDL 168 - Started on atorvastatin 80 mg at bedtime #Hypertension On presentation blood pressure 146/87, Home medication bisoprolol 5 mg daily - Permissive hypertension for 24 hours #Type 2 diabetes mellitus Patient on semaglutide and Farxiga for diabetes management - Sliding scale insulin, fingerstick every 6 hours - Follow hemoglobin A1c in a.m. - Hypoglycemia protocol in place #Anxiety, history Patient on bromazepam, which patient procures from [place] to help with sleep. Reports using every night - Ativan 1 mg every 8 hours as needed for anxiety #Left breast cancer status postmastectomy chemotherapy and radiation therapy, by history Patient reports 20 pound weight loss in 6 months which she attributes to semaglutide, reports feeling tired for the last week and generalized weakness. Reports that she followed up about 8 months ago at [facility]. - Will obtain MRI with and without contrast to rule out any metastatic lesions. DVT prophylaxis: Heparin every 12 hours GI prophylaxis: IV Protonix Diet: N.p.o.,, pending nurse swallow/speech Lines: Peripheral IV Code status: Full code Case discussed with Attending Physician Dr. Monique Palomo MD Internal Medicine PGY-2 Disclaimer: This note was dictated by speech recognition. Minor errors in riding teacher may be present due to voice recognition software. Attending Provider Attestation/Addendum I, Monique Sneed DO, attest that I was physically present for the galvez portions of the service and evaluated the patient with the resident and I reviewed and discussed the case with the resident and agree with the resident's findings and plans of care as documented above Patient is a 55-year-old female with past medical history of left breast cancer status post mastectomy, chemo and radiation, hypertension, HLD, type 2 diabetes and anxiety who was brought to ED due to sudden onset of left sided weakness and numbness. Patient states that her symptoms began yesterday at 11 PM. She also endorses having a very bad headache. She states that the symptoms were worse when she woke up this morning prompting her to come to the ED. A stroke alert was called from ED. CT head was negative for any acute intracranial findings. Head and neck CTA also showed no significant neck arterial stenosis or large vessel occlusions/thrombus. Since patient's symptoms began last night, she is out of the window for tPA. Per teleneuro, there appears to be possible stenosis of distal vessels of the right MCA. Neurology recommends for patient to undergo further workup for possible acute CVA versus intracranial metastatic disease given her history of breast cancer. Will admit patient to telemetry for further workup and management of possible acute CVA. Patient currently continues to have headache, as well as numbness on the left side of her body. Left side of face also appears to be weak and has mild facial droop. Left hand chemistry associate strength appears only slightly less than the right hand. She is also noted to have lack of coordination with [id number] test. Patient reports having blurry vision, but she also wears glasses which she does not have on at this time. Will start patient on dual antiplatelet therapy as recommended by neurology. Will allow for permissive hypertension at this time. MRI with and without contrast has been ordered to rule out metastatic disease versus acute CVA. Patient noted to have a creatinine of 1.6. Will give some IV fluids at this time. If GFR remains low, may need to cancel contrast study.
[2025-10-01] MEDS: ACETAMINOPHEN IVPB 1,000 MG/100 ML VIAL 250 MG IV (13:18)
--- NOTE | 2025-10-01 13:18 | PC.CC ---
Patient is a 55 year-old female who presents to the hospital for left side headache/neck since 0. FREIGHT LOADERLayla made [id number] contact with patient introduced self, role, and reason for visit. Patient appeared alert and oriented to self, location, and situation. FREIGHT LOADER, discussed limits of confidentiality. Patient made appropriate eye contact and engaged in initial assessment. ? Patient confirmed information on demographics and reports to living at home with her . Per patient, in the event that she is unable to make her own medical decisions her medical decision maker is her , Chet Cheung . Patient reports she is able to ambulate independently and complete her own ADLs. Patient does have a kidney problems and sees a specialist but does not receive dialysis. She receives primary care at [facility] on [address] and uses [facility] for prescription medications. She does not use any DME at home. Upon discharge she plans to return back home. nutritional services host to follow up with any discharge needs.
[2025-10-01] MEDS: HEPARIN SOD INJ 5000 UNIT/ML VIAL SC ×2 (13:19→20:37)
[2025-10-01 13:26] LABS: Cardiac Risk Estimate 4.9 RATIO (3.7-5.6); Cholesterol 237 mg/dL (132-200); HDL Cholesterol 48 mg/dL (40-60); LDL Cholesterol,Calculated 168 mg/dL (0-130); Triglycerides 104 mg/dL (30-150)
[2025-10-01 14:16] LABS: Collection Type, Urine Clean Catch
[2025-10-01 14:42] LABS: Bilirubin,Urine Negative (Negative); Blood,Urine Negative (Negative); Clarity,Urine Clear (Clear/Hazy); Color,Urine Colorless (Lt Yel-Yel); Culture Indicated,Urine Not Indicated; Glucose, Urine 3+ (Negative); Ketones,Urine Negative (Negative); Leukocyte Esterase,Urine Negative (Negative); Nitrite,Urine Negative (Negative); PH,Urine 6.5 (5.0-7.0); Protein,Urine Trace (Neg - Trace); RBC,Urine 2 /hpf (0-3); Specific Gravity,Urine 1.034 (1.001-1.035); Squamous Epithelial Cell,Urine < 1 /hpf (0-5); Urobilinogen,Urine Negative mg/dL (0.0-1.0); WBC,Urine 4 /hpf (0-5)
[2025-10-01 14:55] LABS: Amphetamine/Methamp Scrn,U Negative (Negative); Barbiturate Screen,Urine Negative (Negative); Benzodiazepines Screen,Urine Negative (Negative); Benzoylecgonine Screen, Ur Negative (Negative); Fentanyl Screen,Urine Negative (Negative); Opiate Screen,Urine Positive (Negative); THC Screen,Urine Negative (Negative)
[2025-10-01] MEDS: ACETAMINOPHEN 325 MG TABLET 650 MG PO (20:00)
[2025-10-01] MEDS: ATORVASTATIN CALCIUM 20 MG TABLET 80 MG PO (20:37)
--- NOTE | 2025-10-01 23:50 | VVPN_ITS ---
Telemedicine visit statement This visit was conducted with the use of phone was obtained on 10/01/25 at 2350. Documentation for date of: 10/01/25 Subjective Subjective Interval history: Patient is in telemetry. Continues to have left-sided numbness and weakness. Virtual exam Vital Signs Temp Pulse Resp BP Pulse Ox O2 Del Method 97.4 F 87 16 120/67 98 Room Air 10/01/25 20:00 10/01/25 23:37 10/01/25 23:37 10/01/25 20:00 10/01/25 23:37 10/01/25 20:00 Objective Labs 10/01/25 10:55 10/01/25 10:55 Labs: Laboratory Results - last 24 hr 10/01/25 10/01/25 10/01/25 10:55 11:46 14:09 WBC 5.8 RBC 4.13 Hgb 12.5 Hct 36.5 MCV 88 MCH 30.3 MCHC 34.2 RDW Std Deviation 41.4 Plt Count 282 Neut % (Auto) 52 Lymph % (Auto) 40 [place] % (Auto) 6 Eos % (Auto) 2 Baso % (Auto) 0 Neut # (Auto) 3.0 Lymph # (Auto) 2.3 [place] # (Auto) 0.4 Eos # (Auto) 0.1 Baso # (Auto) 0.0 Immature Gran # (Auto) 0.01 H Absolute Nucleated RBC 0.00 Immature Gran % 0 Nucleated RBC % 0 PT 10.3 INR 1.0 APTT 32.9 Puncture Site Right Radial ABG pH 7.35 ABG pCO2 39 ABG pO2 77 L ABG HCO3 21 ABG O2 Saturation 99 H ABG Base Excess -4 L FiO2 21 Sodium 142 Potassium 4.4 Chloride 109 H Carbon Dioxide 21.4 Anion Gap 12 BUN 17 Creatinine 1.6 H Estim Creat Clear Calc 35.4 L eGFR 37 L BUN/Creatinine Ratio 11 L Glucose 105 Calculated Osmolality 284 Calcium 9.8 Corrected Calcium 9.8 Magnesium 2.0 Total Bilirubin 0.4 AST 21 ALT 15 Alkaline Phosphatase 114 Troponin I < 0.020 B-Natriuretic Peptide < 20 Total Protein 7.6 Albumin 5.2 H Globulin 2.4 Albumin/Globulin Ratio 2.2 Triglycerides 104 Cholesterol 237 H LDL Cholesterol, Calc 168 H HDL Cholesterol 48 Cholesterol/HDL Ratio 4.9 Ur Collection Type Clean Catch Urine Color Colorless A Urine Clarity Clear Urine pH 6.5 Ur Specific [place] 1.034 Urine Protein Trace Urine Glucose (UA) 3+ A Urine Ketones Negative Urine Blood Negative Urine Nitrite Negative Urine Bilirubin Negative Urine Urobilinogen (Auto) Negative Ur Leukocyte Esterase Negative Urine RBC 2 Urine WBC 4 Ur Squamous Epith Cells < 1 Urine Bacteria None Ur Culture Indicated? Not Indicated Urine Opiates Screen Positive A Urine Fentanyl Screen Negative Ur Barbiturates Screen Negative U Amphetamin/Meth Scrn Negative U Benzodiazepines Scrn Negative U Cocaine Metab Screen Negative U Marijuana (THC) Screen Negative Ethyl Alcohol < 3.0 ABG Interpretation ABG results: 10/01/25 11:46 ABG pH 7.35 ABG pCO2 39 ABG pO2 77 L ABG HCO3 21 ABG O2 Saturation 99 H ABG Base Excess -4 L Assessment & Plan Problem List (1) Stroke-like symptoms: Status: Acute Assessment and plan: Suspect CVA/TIA/secondary metastasis following breast cancer even though she has been in remission for some time Follow-up with brain MRI (2) Hypertension: Status: Chronic Assessment and plan: Permissive blood pressure control
[2025-10-02] VITALS (9 sets, daily range): BP systolic 109–162; BP diastolic 70–75; PULSE 75–94; RESP 5–18; TEMP 36.3–36.6; O2SAT 95–99; BMI 33.7; BMI 12.0
--- NOTE | 2025-10-02 | XR_ITS ---
Examinations: MRI Brain without intravenous contrast. MRI brain with intravenous contrast MRA brain with intravenous contrast. MRA brain without intravenous contrast MRA neck with intravenous contrast Date and time of exam: October 02, 2025, 1655 hours INDICATIONS: Stroke alert May 01, 2025, onset focal neurologic deficit including left-sided headache left arm numbness and weakness neck pain Technique: Multiple axial and sagittal images of the brain have been obtained Siemens high-resolution 1.5 Trisha short bore scanner is utilized. Sagittal sections, T1-weighted, TR 500, TE 14 Axial sections proton density and T2-weighted, TR 3,000, TE 34, TR 3,000, TE 91 Inversion recovery axial images, TR 9,260, TE 111, TI 2,500 Diffusion weighted images, axial sections, TR 4,800, TE 128, B value 1,000 Axial sections, ADC map, TR 4,800, TE 128. Contrast images have been obtained post intravenous 19 seconds. Cc Gadolinium. T1-weighted axial and coronal images post contrast have been obtained. Angiographic images of neck and brain are obtained pre and post contrast. 3-D post processing performed, including brain, extracranial neck arterial maximum intensity projections Findings: Sellaturcica is not enlarged. The optic chiasm and infundibular stalk are not remarkable. Prepontine and interpeduncular cisterns are not enlarged. No localized enlargement of the medulla or ally. Fourth ventricle and cerebellar tonsils normal in position. Subacute hemorrhage is not seen. Fourth ventricle is midline. Mass in the cerebellopontine angle region is not evident. 7th and 8th nerve complexes exhibits symmetry. Globes are symmetrical with no retro-orbital mass. Increased white matter signal evident, multiple punctate foci increased signal in the white matter Diffusion-weighted images demonstrate no focus of restricted diffusion. Mass-effect upon the ventricular system is not identified. Abnormal contrast enhancement is not seen MRA brain carotid images no carotid stenoses, no large vessel occlusions Impression: Negative for acute hemorrhage mass effect or midline shift No acute infarct Multiple prominent punctate foci increased signal in the white matter, demyelinating disease
[2025-10-02] MEDS: ACETAMINOPHEN 325 MG TABLET 650 MG PO ×3 (01:04→20:02)
[2025-10-02 05:35] LABS: Basophils # (Auto) 0.0 Thou/mm3 (0.0-0.2); Basophils % (Auto) 1 % (0-2.5); Eosinophils # (Auto) 0.1 Thou/mm3 (0.0-0.5); Eosinophils % (Auto) 2 % (0-10); Hematocrit 32.5 % (36.0-46.0); Hemoglobin 10.7 g/dL (12.0-16.0); Immature Granulocytes Auto 0.01 Thou/mm3 (0.00-0.00); Lymphocytes # (Auto) 1.7 Thou/mm3 (1.0-4.8); Lymphocytes % (Auto) 32 % (10-50); Mean Corpuscular HGB Conc 32.9 g/dl (31.0-37.0); Mean Corpuscular Hemoglobin 29.6 pg (25.0-35.0); Mean Corpuscular Volume 90 fL (80-100); Monocytes # (Auto) 0.4 Thou/mm3 (0.0-0.8); Monocytes % (Auto) 7 % (0-12); Neutrophils # (Auto) 3.1 Thou/mm3 (1.8-7.7); Neutrophils % (Auto) 58 % (37-80); Nucleated Red Blood Cell # 0.00 Thou/mm3 (0.00-0.00); Nucleated Red Blood Cell % 0 /100 WBC (0); Platelet Count 252 Thou/mm3 (140-440); RDW Standard Deviation 41.9 fL (36.4-46.3); Red Blood Count 3.61 Miln/mm3 (4.00-5.20); White Blood Count 5.3 Thou/mm3 (3.6-11.0)
[2025-10-02 05:52] LABS: Glucose Estimated Average 120 mg/dL (80-131); Hemoglobin A1C 5.8 % Hgb (4.8-6.0)
[2025-10-02 06:03] LABS: Alanine Aminotransferase 15 U/L (10-49); Albumin, Serum 4.5 gm/dL (3.5-5.0); Albumin/Globulin Ratio 2.0 (1.2-2.2); Alkaline Phosphatase 111 U/L (46-116); Anion Gap 10 (7-16); Aspartate Amino Transferase 22 U/L (0-34); BUN/Creatinine Ratio 9 Ratio (12-20); Bilirubin,Total 0.3 mg/dL (0.3-1.2); Blood Urea Nitrogen 13 mg/dL (9-23); Calcium 9.3 mg/dL (8.3-10.6); Calcium (Corrected) 9.3 mg/dL (8.5-10.1); Carbon Dioxide 22.3 mMol/L (20.0-31.0); Chloride 110 mMol/L (98-107); Creatinine (Component) 1.5 mg/dL (0.6-1.3); Estimated Creatinine Clearance 38.3 mL/min (>60); Free T4 (Free Thyroxine) 1.20 ng/dL (0.89-1.76); Globulin 2.2 gm/dL (2.3-3.5); Glucose 94 mg/dL (74-106); Magnesium 1.9 mg/dL (1.6-2.6); Osmolality,Calculated 283 (275-295); Phosphorous 3.9 mg/dL (2.4-5.1); Potassium 4.3 mMol/L (3.4-5.1); Sodium 142 mMol/L (136-145); Thyroid Stimulating Hormone 2.38 uIU/mL (0.55-4.78); Total Protein 6.7 gm/dL (5.7-8.2); eGFR 40 See Note
[2025-10-02] MEDS: RINGERS LACTATED 1000 ML 1,000 ML 75 ML IV (08:26)
[2025-10-02] MEDS: HEPARIN SOD INJ 5000 UNIT/ML VIAL SC ×2 (08:27→20:02)
[2025-10-02] MEDS: CLOPIDOGREL BISULFATE 75 MG TABLET PO (08:28)
[2025-10-02] MEDS: ASPIRIN EC 81 MG TABEC PO (08:28)
[2025-10-02] MEDS: PANTOPRAZOLE 40 MG TABLET PO (08:28)
--- NOTE | 2025-10-02 09:01 | PC.SS ---
Follow up note: MRI and ECHO pending. Pt will return home upon dc.
[2025-10-02] MEDS: KETOROLAC INJ 30 MG/ML VIAL 15 MG IVP (11:13)
[2025-10-02] MEDS: Magnesium Sulfate 2 GM Ivpb 2 GM/50 ML BAG IV (11:23)
[2025-10-02] MEDS: METOCLOPRAMIDE INJ 5 MG/ML VIAL 2 ML 10 MG IVP (11:50)
--- NOTE | 2025-10-02 14:15 | ESPR_ITS ---
<Statement entered by Marilia Guzman MD - 10/02/25 19:43> Patient was seen and examined at bedside. I agree on the assessment and plan on this note as documented by resident DR Salazar Hidalgo DO PGY1. 55-year-old female with past medical history as below admitted for CVA workup, continues to complain of headache, was given migraine cocktail this morning including 15 Toradol IV x 1, Benadryl 25 mg IV x 1, IV magnesium 2 g, IV Reglan 10 mg x 1 and we will continue LR 75 cc/h total 1 L. Case discussed with patient's primary home advisor Dr. Alexandra, per him patient is stable to receive IV contrast for MRI, radiology team was informed. We will continue DAPT, LDL around 168, will continue atorvastatin 80 mg daily. Pending MRI echocardiogram and physical therapy evaluation, anticipate discharge in the next 24 hours once workup is complete. Case discussed with attending Dr. Xavi Guzman MD PGY-2 Documentation for date of: 10/02/25 Subjective Subjective Interval history: Patient currently doing CVA workup. Echo has been taken but not read. Yesterday, she was noted to able to do MRI because her renal function was not optimal, with Cr 1.5 and eGFR 40. Today, received consent for MRI with and without contrast from home advisor, Dr. Alexandra. Will continue on aspirin 81 mg p.o. daily and Plavix 75 mg p.o. daily, atorvastatin 80 mg p.o. daily. TSH 2.38, free T4 1.20 HbA1c 5.8. Today patient was complaining of headache. Was given migraine cocktail with IV Toradol 15 mg x 1, Benadryl 25 mg IV x 1, IV Mag 2 g x1 , IV Reglan 10 mg x 1. Started on IVF LR 75ml/hr x1 No Overnight events. Labs reviewed and patient examined at the bedside. Denies chest pain, palpation, abdominal pain, N/V, fevers or chills. Exam Vital Signs Temp Pulse Resp BP Pulse Ox O2 Del Method 97.8 F 85 15 125/75 98 Room Air 10/02/25 12:00 10/02/25 12:00 10/02/25 12:00 10/02/25 12:00 10/02/25 12:00 10/02/25 12:00 Narrative Exam General: No acute distress, well nourished, AAO x3 Eye: PERRL, EOMI, normal conjunctiva, no scleral icterus HENT: Normocephalic, atraumatic, hearing intact to conversation at normal volume, moist oral mucosa Neck: Supple, non-tender, no JVD, no lymphadenopathy Lungs: Non-labored respirations, symmetric chest rise, Clear to auscultate bilaterally, No wheezing, rhonchi, crackles Heart: Peripheral pulses intact bilaterally, Regular Rate and Rhythm. Abdomen: Soft, non-tender, non-distended, no palpable masses Musculoskeletal: Normal range of motion and strength, No cyanosis or edema, No visible joint swelling Skin: Skin is warm, dry, no rashes or lesions. Psychiatric: Cooperative, appropriate mood and affect, Awake and alert, not agitated Neuro: Cranial nerves II-XII grossly intact. Strength 5/5 throughout. Sensations intact to light touch. Objective Labs 10/02/25 04:24 10/02/25 04:24 Labs: Laboratory Results - last 24 hr 10/01/25 10/02/25 14:09 04:24 WBC 5.3 RBC 3.61 L Hgb 10.7 L Hct 32.5 L MCV 90 MCH 29.6 MCHC 32.9 RDW Std Deviation 41.9 Plt Count 252 D Neut % (Auto) 58 Lymph % (Auto) 32 [place] % (Auto) 7 Eos % (Auto) 2 Baso % (Auto) 1 Neut # (Auto) 3.1 Lymph # (Auto) 1.7 [place] # (Auto) 0.4 Eos # (Auto) 0.1 Baso # (Auto) 0.0 Immature Gran # (Auto) 0.01 H Absolute Nucleated RBC 0.00 Immature Gran % 0 Nucleated RBC % 0 Sodium 142 Potassium 4.3 Chloride 110 H Carbon Dioxide 22.3 Anion Gap 10 BUN 13 Creatinine 1.5 H Estim Creat Clear Calc 38.3 L eGFR 40 L BUN/Creatinine Ratio 9 L Glucose [address] Glu mg/dL 120 Hemoglobin A1c 5.8 Calculated Osmolality 283 Calcium 9.3 Corrected Calcium 9.3 Phosphorus 3.9 Magnesium 1.9 Total Bilirubin 0.3 AST 22 ALT 15 Alkaline Phosphatase 111 Total Protein 6.7 Albumin 4.5 D Globulin 2.2 L Albumin/Globulin Ratio 2.0 TSH 2.38 Free T4 1.20 Ur Collection Type Clean Catch Urine Color Colorless A Urine Clarity Clear Urine pH 6.5 Ur Specific [place] 1.034 Urine Protein Trace Urine Glucose (UA) 3+ A Urine Ketones Negative Urine Blood Negative Urine Nitrite Negative Urine Bilirubin Negative Urine Urobilinogen (Auto) Negative Ur Leukocyte Esterase Negative Urine RBC 2 Urine WBC 4 Ur Squamous Epith Cells < 1 Urine Bacteria None Ur Culture Indicated? Not Indicated Urine Opiates Screen Positive A Urine Fentanyl Screen Negative Ur Barbiturates Screen Negative U Amphetamin/Meth Scrn Negative U Benzodiazepines Scrn Negative U Cocaine Metab Screen Negative U Marijuana (THC) Screen Negative ABG Interpretation ABG results: 10/01/25 11:46 ABG pH 7.35 ABG pCO2 39 ABG pO2 77 L ABG HCO3 21 ABG O2 Saturation 99 H ABG Base Excess -4 L Quality Measures Quality Measures none Assessment & Plan Assessment Current Active Medications: Generic Name Dose Route Start Last Admin Trade Name Freq PRN Reason Stop Dose Admin Acetaminophen 650 mg 10/02/25 00:56 10/02/25 05:51 Acetaminophen 325 Mg Tablet PO 10/31/25 12:42 650 mg Q4H PRN Administration Fever >100.4 and Pain 1-3 Aspirin 81 mg 10/02/25 09:00 10/02/25 08:28 Aspirin Ec 81 Mg Tabec PO 11/01/25 08:59 81 mg QDAY MARA Administration Atorvastatin Calcium 80 mg 10/01/25 21:00 10/01/25 20:37 Atorvastatin Calcium 20 Mg Tablet PO 10/31/25 20:59 80 mg HS MARA Administration Clopidogrel Bisulfate 75 mg 10/02/25 09:00 10/02/25 08:28 Clopidogrel Bisulfate 75 Mg Tablet PO 11/01/25 08:59 75 mg QDAY MARA Administration Dextrose 25 ml 10/01/25 12:49 Dextrose 50%-Water Inj 50 Ml Syringe IV 10/31/25 12:48 Q15MIN PRN BG 50-70 responsive npo pt Dextrose 50 ml 10/01/25 12:49 Dextrose 50%-Water Inj 50 Ml Syringe IV 10/31/25 12:48 Q15MIN PRN BG <50 OR BG <70 & pt unresponsive Glucagon 1 mg 10/01/25 12:49 Glucagon Inj 1 Mg Vial IM Q15MIN PRN BG <70, and no IV access Heparin Sodium (Porcine) 5,000 unit 10/01/25 12:45 10/02/25 08:27 Heparin Sod Inj 5000 Unit/Ml Vial SC 10/15/25 12:44 5,000 unit Q12HR MARA Administration Lactated Ringer's 1,000 mls @ 75 mls/hr 10/02/25 07:39 10/02/25 08:26 Lactated Ringers IV 10/02/25 20:58 75 mls/hr .[id number] MARA Administration Insulin Human Lispro 0 unit 10/01/25 18:00 10/02/25 12:10 Insulin Lispro (Admelog) 1 Unit/0.01 Ml Unit SC 10/31/25 17:59 Not Given Q6HR MARA Protocol Labetalol HCl 10 mg 10/01/25 12:52 Labetalol Inj 5 Mg/Ml Vial 20 Ml IVP 10/31/25 12:51 Q6H PRN SBP> 220, DBP >120 Lorazepam 1 mg 10/01/25 14:28 Lorazepam 0.5 Mg Tablet PO 10/06/25 14:27 Q8HR PRN Anxiety Ondansetron HCl 4 mg 10/01/25 12:43 Ondansetron Inj 2 Mg/Ml Inj 2 Ml IVP 10/31/25 12:42 Q6H PRN NAUSEA OR VOMITING Protocol Pantoprazole Sodium 40 mg 10/02/25 09:00 10/02/25 08:28 Pantoprazole 40 Mg Tablet PO 11/01/25 08:59 40 mg QDAY MARA Administration Sennosides 1 tab 10/02/25 09:00 10/02/25 08:28 Senna Tablet PO 11/01/25 08:59 1 tab QDAY MARA Administration Protocol Plan Ms. Cheung is a 55-year-old female with past medical history of left breast cancer status post mastectomy, chemotherapy and radiation therapy, hypertension, hypertriglyceridemia, type 2 diabetes mellitus and anxiety who presented to [facility] emergency department on 10/01/2025 with a chief complaint of left-sided headache, neck pain, left arm numbness and weakness. Patient admitted for CVA workup. #CVA workup #Left-sided headache, left upper extremity weakness Complaints of left-sided headache, neck pain, left arm numbness and weakness since 3 days, progressive and blurring of vision left eye doesn't have glasses currently, denies any vision loss. Also complains of generalized fatigue and weakness for the last week, reports 20 pound weight loss in the last 6 months and somewhat decreased appetite however attributed to semaglutide. Patient has history of diabetes mellitus, hypertriglyceridemia and hypertension. 10/01-Cholesterol 237, LDL 168, HDL 48. On bisoprolol 5 mg for hypertension. On semaglutide and Farxiga [address] mellitus [address] head negative for any acute hemorrhage mass effect or midline shift CTA negative for any large vessel occlusion or thrombus EKG shows sinus rhythm, QTc 416 Teleneurology consulted in ED, stroke workup initiated, was given acetaminophen/codeine phosphate 2 tablets p.o. x 1, Zofran 4 mg x 1, started on NS maintenance fluid, aspirin 81 mg, Plavix 300 mg. Plan: - DAPT, aspirin 81 mg daily and Plavix 75 mg daily - Ordered MR stroke protocol with and without contrast, echocardiogram with bubble study - Tylenol as needed for headache - Atorvastatin 80 mg p.o. at bedtime - Permissive hypertension, labetalol 10 mg every 6 hours for SBP greater than 220/DBP greater than 120 - 1L IVF 75ml x1 - Neurology consulted, appreciate recommendations - Neuro swallow screen, n.p.o., referral to speech therapy - Referral to physical therapy - Heparin for DVT prophylaxis #Dysphagia Reports that she has feeling of food getting stuck in her throat. Did receive radiation therapy in the past for breast cancer. - Speech therapy evaluation #CKD stage IIIa Patient on presentation BUN 17, creatinine 1.6, GFR 37. Baseline GFR 45, creatinine 1.4. Follows Dr. Alexandra home advisor outpatient. -IVF LR 75ml/hr x1 -Strict intake and output -Avoid nephrotoxic agents, renally dose medication #Dyslipidemia, hypercholesterolemia Patient's cholesterol 237, LDL 168 - Started on atorvastatin 80 mg at bedtime #Hypertension On presentation blood pressure 146/87, Home medication bisoprolol 5 mg daily - Permissive hypertension for 24 hours #Type 2 diabetes mellitus Patient on semaglutide and Farxiga for diabetes management - Sliding scale insulin, fingerstick every 6 hours - Follow hemoglobin A1c in a.m. - Hypoglycemia protocol in place #Anxiety, history Patient on bromazepam, which patient procures from [facility] to help with sleep. Reports using every night - Ativan 1 mg every 8 hours as needed for anxiety #Left breast cancer status postmastectomy chemotherapy and radiation therapy, by history Patient reports 20 pound weight loss in 6 months which she attributes to semaglutide, reports feeling tired for the last week and generalized weakness. Reports that she followed up about 8 months ago at [facility]. - Will obtain MRI with and without contrast to rule out any metastatic lesions. DVT prophylaxis: Heparin every 12 hours GI prophylaxis: IV Protonix Diet: N.p.o.,, pending nurse swallow/speech Lines: Peripheral IV Code status: Full code Assessment and plan discussed with my attending physician Dr. Rebollar and Dr. Guzman (PGY-2) Dr. Hidalgo (PGY-1) - Internal medicine resident Attending Provider Attestation/Addendum I have seen and examined the patient. I was physically present for the galvez portions of the services provided including history, physical exam, diagnosis, treatment plans and orders. I agree with assessment and plan of care as documented by residents. Patient seen and examined at bedside this morning. Has been complaining of headaches, received migraine cocktail with improvement in symptoms. Discussed with nephrology regarding contrast for MRI, agreed that proceeding with MRI with contrast, radiology made aware. Continues to be on aspirin, Plavix and atorvastatin. Vital signs are stable, lab results are stable as well. Patient is able to move all her extremities, no weakness appreciated will over all extremities, sensation intact. Neurology following closely, appreciate recommendations. Patient is awaiting brain MRI, echocardiogram, physical therapy evaluation. Even though this this note was carefully revised there may still be minor errors in jewel diameter gauger due to voice recognition software. Xavi Rebollar MD
[2025-10-02] MEDS: ATORVASTATIN CALCIUM 20 MG TABLET 80 MG PO (20:02)
--- NOTE | 2025-10-02 20:23 | ESPR_ITS ---
Documentation for date of: 10/02/25 Subjective Subjective Interval history: Patient seen today at the bedside found awake, alert, orientedx3. Currently complaining of headache and neck pain. Vitals and labs reviewed. Patient was able to ambulate outside the room with no issues. Patient under lots of stress recently due to loss of a family member. Symptoms seem to be related to depression and her other comorbidities including high blood pressure, elevated blood sugars. Will start the patient amitriptyline 25 mg. Imaging reviewed unlikely to be demyelinating disease, no acute infarct nor bleed identified. Exam Vital Signs Temp Pulse Resp BP Pulse Ox O2 Del Method 97.9 F 75 16 123/72 96 Room Air 10/02/25 16:00 10/02/25 16:00 10/02/25 16:00 10/02/25 16:00 10/02/25 16:00 10/02/25 16:00 Narrative Exam Physical Exam GENERAL: NAD, AAOx3,weak HEENT: Moist mucosa. Eyes open, symmetrical, & clear CARDIO: Heart RRR, no obvious murmurs PULM: No noted coughing/dyspnea CTA B/L, no R/W/R GI: Abdomen soft, nondistended, no pain on palpation. BSx4 SKIN/MSK/EXT: No wounds/rashes/edema/amputations, no pain on palpation. Pedal pulses present B/L NEURO: AAOx3, no focal neuro deficits, able to move all 4 extremities Objective Labs 10/03/25 04:39 10/03/25 04:39 Labs: Laboratory Results - last 24 hr 10/02/25 04:24 WBC 5.3 RBC 3.61 L Hgb 10.7 L Hct 32.5 L MCV 90 MCH 29.6 MCHC 32.9 RDW Std Deviation 41.9 Plt Count 252 D Neut % (Auto) 58 Lymph % (Auto) 32 [place] % (Auto) 7 Eos % (Auto) 2 Baso % (Auto) 1 Neut # (Auto) 3.1 Lymph # (Auto) 1.7 [place] # (Auto) 0.4 Eos # (Auto) 0.1 Baso # (Auto) 0.0 Immature Gran # (Auto) 0.01 H Absolute Nucleated RBC 0.00 Immature Gran % 0 Nucleated RBC % 0 Sodium 142 Potassium 4.3 Chloride 110 H Carbon Dioxide 22.3 Anion Gap 10 BUN 13 Creatinine 1.5 H Estim Creat Clear Calc 38.3 L eGFR 40 L BUN/Creatinine Ratio 9 L Glucose [address] Glu mg/dL 120 Hemoglobin A1c 5.8 Calculated Osmolality 283 Calcium 9.3 Corrected Calcium 9.3 Phosphorus 3.9 Magnesium 1.9 Total Bilirubin 0.3 AST 22 ALT 15 Alkaline Phosphatase 111 Total Protein 6.7 Albumin 4.5 D Globulin 2.2 L Albumin/Globulin Ratio 2.0 TSH 2.38 Free T4 1.20 ABG Interpretation ABG results: 10/01/25 11:46 ABG pH 7.35 ABG pCO2 39 ABG pO2 77 L ABG HCO3 21 ABG O2 Saturation 99 H ABG Base Excess -4 L Quality Measures Quality Measures none Assessment & Plan Assessment Current Active Medications: Generic Name Dose Route Start Last Admin Trade Name Freq PRN Reason Stop Dose Admin Acetaminophen 650 mg 10/02/25 00:56 10/02/25 20:02 Acetaminophen 325 Mg Tablet PO 10/31/25 12:42 650 mg Q4H PRN Administration Fever >100.4 and Pain 1-3 Aspirin 81 mg 10/02/25 09:00 10/02/25 08:28 Aspirin Ec 81 Mg Tabec PO 11/01/25 08:59 81 mg QDAY MARA Administration Atorvastatin Calcium 80 mg 10/01/25 21:00 10/02/25 20:02 Atorvastatin Calcium 20 Mg Tablet PO 10/31/25 20:59 80 mg HS MARA Administration Clopidogrel Bisulfate 75 mg 10/02/25 09:00 10/02/25 08:28 Clopidogrel Bisulfate 75 Mg Tablet PO 11/01/25 08:59 75 mg QDAY MARA Administration Dextrose 25 ml 10/01/25 12:49 Dextrose 50%-Water Inj 50 Ml Syringe IV 10/31/25 12:48 Q15MIN PRN BG 50-70 responsive npo pt Dextrose 50 ml 10/01/25 12:49 Dextrose 50%-Water Inj 50 Ml Syringe IV 10/31/25 12:48 Q15MIN PRN BG <50 OR BG <70 & pt unresponsive Glucagon 1 mg 10/01/25 12:49 Glucagon Inj 1 Mg Vial IM Q15MIN PRN BG <70, and no IV access Heparin Sodium (Porcine) 5,000 unit 10/01/25 12:45 10/02/25 20:02 Heparin Sod Inj 5000 Unit/Ml Vial SC 10/15/25 12:44 5,000 unit Q12HR MARA Administration Lactated Ringer's 1,000 mls @ 75 mls/hr 10/02/25 07:39 10/02/25 08:26 Lactated Ringers IV 10/02/25 20:58 75 mls/hr .[id number] MARA Administration Insulin Human Lispro 0 unit 10/01/25 18:00 10/02/25 17:49 Insulin Lispro (Admelog) 1 Unit/0.01 Ml Unit SC 10/31/25 17:59 Not Given Q6HR MARA Protocol Labetalol HCl 10 mg 10/01/25 12:52 Labetalol Inj 5 Mg/Ml Vial 20 Ml IVP 10/31/25 12:51 Q6H PRN SBP> 220, DBP >120 Lorazepam 1 mg 10/01/25 14:28 Lorazepam 0.5 Mg Tablet PO 10/06/25 14:27 Q8HR PRN Anxiety Ondansetron HCl 4 mg 10/01/25 12:43 Ondansetron Inj 2 Mg/Ml Inj 2 Ml IVP 10/31/25 12:42 Q6H PRN NAUSEA OR VOMITING Protocol Pantoprazole Sodium 40 mg 10/02/25 09:00 10/02/25 08:28 Pantoprazole 40 Mg Tablet PO 11/01/25 08:59 40 mg QDAY MARA Administration Sennosides 1 tab 10/02/25 09:00 10/02/25 08:28 Senna Tablet PO 11/01/25 08:59 1 tab QDAY MARA Administration Protocol Plan 55-year-old female with past medical history of left breast cancer status post mastectomy, chemotherapy and radiation therapy, hypertension, hypertriglyceridemia, type 2 diabetes mellitus and anxiety who presented to [facility] emergency department on 10/01/2025 with a chief complaint of left-sided headache, neck pain, left arm numbness and weakness. Patient admitted for CVA workup. #CVA workup-ruled out #Occipital headache/ neck pain Patient does endorse being depressed since recent loss of a family member, and being unable to sleep at night She also states she has this headache and neck pain preventing her to sleep Symptoms likely related to depression and other comorbidities such as vascular due to BP, HLD and DM Patient was able to move all 4 extremities and ambulate outside the room with motivation without obvious weakness or focal deficit CT/CTA negative for acute hemorrrhage, mass effect or midline shift, LVO MRI shows multiple prominent foci with increased white matter changes, however doubt demyelinating disease - started amitryptiline for neuropathic pain, depression - Continue Physical therapy - Just ASA 81 mg and high intensity statin #Dysphagia #CKD stage IIIa #Dyslipidemia, hypercholesterolemia #Hypertension #Type 2 diabetes mellitus #Anxiety, history #Left breast cancer status postmastectomy chemotherapy and radiation therapy, by history - as per primary team Case discussed with my attending Dr. Laurel Lberon MD PGY-2 Attending Provider Attestation/Addendum I personally have seen and examined the patient at the bedside and I agreed with the resident's findings, assessment and plan of care. Presenting symptoms and imaging findings are most likely from migraine, not suggestive of demyelinating disease. Her symptoms have gotten worse from underlying stress. She will benefit from amitriptyline 25 mg at bedtime with close monitoring of weight. Needs to continue with aspirin 81 mg along with statin diabetes and hypertension control. Patient is stable from neurology standpoint for discharge home with outpatient physical therapy as needed.
[2025-10-02] MEDS: AMITRIPTYLINE HCL 25 MG TABLET PO (22:39)
[2025-10-02] MEDS: MELATONIN 3 MG TABLET 6 MG PO (23:46)
[2025-10-03] VITALS (7 sets, daily range): BP systolic 120–143; BP diastolic 70–87; PULSE 72–88; RESP 16–96; TEMP 36.1–36.4; O2SAT 95–98; BMI 33.5
[2025-10-03] MEDS: ACETAMINOPHEN 325 MG TABLET 650 MG PO ×2 (05:55→11:02)
[2025-10-03 06:00] LABS: Basophils # (Auto) 0.0 Thou/mm3 (0.0-0.2); Basophils % (Auto) 0 % (0-2.5); Eosinophils # (Auto) 0.2 Thou/mm3 (0.0-0.5); Eosinophils % (Auto) 3 % (0-10); Hematocrit 32.0 % (36.0-46.0); Hemoglobin 11.0 g/dL (12.0-16.0); Immature Granulocytes Auto 0.01 Thou/mm3 (0.00-0.00); Lymphocytes # (Auto) 2.0 Thou/mm3 (1.0-4.8); Lymphocytes % (Auto) 40 % (10-50); Mean Corpuscular HGB Conc 34.4 g/dl (31.0-37.0); Mean Corpuscular Hemoglobin 30.6 pg (25.0-35.0); Mean Corpuscular Volume 89 fL (80-100); Monocytes # (Auto) 0.3 Thou/mm3 (0.0-0.8); Monocytes % (Auto) 6 % (0-12); Neutrophils # (Auto) 2.6 Thou/mm3 (1.8-7.7); Neutrophils % (Auto) 51 % (37-80); Nucleated Red Blood Cell # 0.00 Thou/mm3 (0.00-0.00); Nucleated Red Blood Cell % 0 /100 WBC (0); Platelet Count 244 Thou/mm3 (140-440); RDW Standard Deviation 40.4 fL (36.4-46.3); Red Blood Count 3.60 Miln/mm3 (4.00-5.20); White Blood Count 5.0 Thou/mm3 (3.6-11.0)
[2025-10-03 06:11] LABS: Alanine Aminotransferase 13 U/L (10-49); Albumin, Serum 4.4 gm/dL (3.5-5.0); Albumin/Globulin Ratio 2.1 (1.2-2.2); Alkaline Phosphatase 101 U/L (46-116); Anion Gap 12 (7-16); Aspartate Amino Transferase 19 U/L (0-34); BUN/Creatinine Ratio 9 Ratio (12-20); Bilirubin,Total 0.3 mg/dL (0.3-1.2); Blood Urea Nitrogen 14 mg/dL (9-23); Calcium 8.9 mg/dL (8.3-10.6); Calcium (Corrected) 8.9 mg/dL (8.5-10.1); Carbon Dioxide 22.8 mMol/L (20.0-31.0); Chloride 108 mMol/L (98-107); Creatinine (Component) 1.6 mg/dL (0.6-1.3); Estimated Creatinine Clearance 35.8 mL/min (>60); Globulin 2.1 gm/dL (2.3-3.5); Glucose 89 mg/dL (74-106); Magnesium 2.2 mg/dL (1.6-2.6); Osmolality,Calculated 284 (275-295); Phosphorous 4.2 mg/dL (2.4-5.1); Potassium 4.1 mMol/L (3.4-5.1); Sodium 143 mMol/L (136-145); Total Protein 6.5 gm/dL (5.7-8.2); eGFR 37 See Note
[2025-10-03] MEDS: CLOPIDOGREL BISULFATE 75 MG TABLET PO (08:58)
[2025-10-03] MEDS: HEPARIN SOD INJ 5000 UNIT/ML VIAL SC (08:58)
[2025-10-03] MEDS: PANTOPRAZOLE 40 MG TABLET PO (08:58)
[2025-10-03] MEDS: ASPIRIN EC 81 MG TABEC PO (08:59)
--- NOTE | 2025-10-03 12:33 | PC.SS ---
SS has sent DME order for walker using [employer]. Pt, , and dtr are aware DME requires insurance authorization if pt is approved for walker. SS provided them with [employer] [facility] and places to purchase walker if required. Per family, pt will return home upon dc.
--- NOTE | 2025-10-03 12:59 | PC.SS ---
SS has faxed out patient PT referral to [facility].
--- NOTE | 2025-10-03 15:01 | ESDS_ITS ---
<Statement entered by Fletcher Rosales MD - 10/03/25 15:47> Patient seen and examined at bedside. I discussed and supervised with the agribusiness internship physician who took care of this patient. I personally saw and examined the patient. I agree with most of the assessment and plan. Plan of care discussed with attending Dr. Keturah Rosales MD PGY-2 Planned Discharge Date 10/03/25 DS: Providers Provider Date of admission: 10/01/25 12:41 Primary care physician: Physician No Primary/Family Admitting Provider: Monique Sneed DO Attending Provider on Admission: Monique Sneed DO Consults: 10/01/25 10:53 Consult to Neurology / Tele-Neurology Routine Comment: Consulting Provider: [facility] 10/01/25 12:46 Consult to Neurology / Tele-Neurology Routine Comment: CVA Workup Consulting Provider: Zaid Barragan Referral Physical Therapy Routine Comment: Physician Instructions: Instructions: CVA Workup Referral Speech Therapy Routine Comment: CVA Workup 10/01/25 17:58 [facility] Referral - Knowledge Deficit Routine Comment: Positive screening for knowledge deficit needs. 10/02/25 14:17 Consult to Nephrology Routine Comment: Consulting Provider: Forrest Alexandra Attending Provider on DC: Salazar Hidalgo DO Discharging Provider: Salazar Hidalgo DO DS: Diagnosis Problem List Completed Was Problem List Reviewed/Reconciled?: Yes Hospital Course Hospital Course Hospital course: Summary: Ms. Cheung is a 55-year-old female with past medical history of left breast cancer status post mastectomy, chemotherapy and radiation therapy, hypertension, hypertriglyceridemia, type 2 diabetes mellitus and anxiety who presented to [facility] emergency department on 10/01/2025 with a chief complaint of left-sided headache, neck pain, left arm numbness and weakness. Patient admitted for CVA workup. CT head, CTA head/neck, Brain MRI w/ and w/o contrast, and ECHO w/ bubble study was negative. Stroke and metastatic disease in brain has been ruled out. Patient's lab and vitals were stable, and was discharged on 10/03. Hospital Course: On presentation, CXR negative for pneumonia, CT head negative, and CTA negative. Upon admission to the hospital, patient started on aspirin 81 mg daily, Plavix 75 mg daily, atorvastatin 80 mg p.o. daily, 1 L NS to maintain his fluid, heparin for DVT prophylaxis. Patient's dysphagia evaluation noted that patient was able to demonstrate functional oral management of all consistencies, alt cherelle there were concern for esophageal dysfunction with history of radiation due to breast cancer. Brain MRI with and without contrast was negative for any acute hemorrhage, acute infarct or metastatic disease in brain. ECHO was normal with EF 60-65%, with negative bubble study, RVSP 24mmHg, grade I diastolic dysfunction. Patient still had headache so she was given migraine cocktail with IV Toradol 15 mg x 1, Benadryl 25 mg IV x 1, IV Mag 2 g x1 , IV Reglan 10 mg x 1 on 10/02. Neurology recommended aspirin 81 mg and amitriptyline 25 mg, with concern for depression. Patient's lab and vitals were stable, and was discharged on 10/03. #CVA workup #Left-sided headache, left upper extremity weakness #Dysphagia #CKD stage IIIa #Dyslipidemia, hypercholesterolemia #Hypertension #Type 2 diabetes mellitus #Anxiety, history #Left breast cancer status postmastectomy chemotherapy and radiation therapy, by history Instructions: - You have been sterted on Amytriptyline, Aspirin and Atorvastatin daily. - STOP Lovastatin and Gemfibrozil - Follow up with neurology outpatient and obtain referral for the same - Follow up with nephrology outpatient, repeat renal panel in 1 week. - Follow up with PCP in 1 week. - Return to ED if symptoms worsen - Se le garza prescrito amitriptilina, aspirina y atorvastatina diariamente. - Suspenda la lovastatina y el gemfibrozilo. - Acuda a consulta de neurolog?a ambulatoria y solicite elham derivaci?n. - Acuda a consulta de nefrolog?a ambulatoria y repita las pruebas renales en elham semana. - Acuda a muñoz m?dico de cabecera en elham semana. - Regrese a urgencias si los s?ntomas empeoran. Assessment and plan discussed with my attending physician Dr. Rebollar and Dr. Rosales (PGY-2) Dr. Hidalgo (PGY-1) - Internal medicine resident Status at Discharge Overall status at discharge: patient is progressing back to baseline Time Spent with Patient Time attestation: Total time spent providing and/or coordinating discharge services: 33 minutes Time spent: Greater than 30 minutes Quality: Stroke Pt Provided Written Stroke Discharge Instructions: Yes Exam Vital Signs Temp Pulse Resp BP Pulse Ox O2 Del Method 97.6 F 88 18 137/79 H 95 Room Air 10/03/25 14:00 10/03/25 14:00 10/03/25 14:00 10/03/25 14:00 10/03/25 14:00 10/03/25 14:00 Narrative Exam General: No acute distress, well nourished, AAO x3 Eye: PERRL, EOMI, normal conjunctiva, no scleral icterus HENT: Normocephalic, atraumatic, hearing intact to conversation at normal volume, moist oral mucosa Neck: Supple, non-tender, no JVD, no lymphadenopathy Lungs: Non-labored respirations, symmetric chest rise, Clear to auscultate bilaterally, No wheezing, rhonchi, crackles Heart: Peripheral pulses intact bilaterally, Regular Rate and Rhythm. Abdomen: Soft, non-tender, non-distended, no palpable masses Musculoskeletal: Normal range of motion and strength, No cyanosis or edema, No visible joint swelling Skin: Skin is warm, dry, no rashes or lesions. Psychiatric: Cooperative, appropriate mood and affect, Awake and alert, not agitated Neuro: Cranial nerves II-XII grossly intact. Strength 5/5 throughout. Sensations intact to light touch. Discharge Plan Plan Patient Disposition: HOME (Self Care) Patient condition on transfer: Stable Care Plan Goals: - You have been sterted on Amytriptyline, Aspirin and Atorvastatin daily. - STOP Lovastatin and Gemfibrozil - Follow up with neurology outpatient and obtain referral for the same - Follow up with nephrology outpatient, repeat renal panel in 1 week. - Follow up with PCP in 1 week. - Return to ED if symptoms worsen - Se le garza prescrito amitriptilina, aspirina y atorvastatina diariamente. - Suspenda la lovastatina y el gemfibrozilo. - Acuda a consulta de neurolog?a ambulatoria y solicite elham derivaci?n. - Acuda a consulta de nefrolog?a ambulatoria y repita las pruebas renales en elham semana. - Acuda a muñoz m?dico de cabecera en elham semana. - Regrese a urgencias si los s?ntomas empeoran. Prescriptions/Referrals Prescriptions/Med Rec: New aspirin 81 mg Tablet,Delayed Release (Dr/Ec) 81 mg PO QDAY 30 Days Qty: 30 0RF amitriptyline 25 mg Tablet 25 mg PO HS 30 Days Qty: 30 0RF atorvastatin [Lipitor] 80 mg tablet 80 mg PO HS 30 Days Qty: 30 0RF Continued losartan 50 mg tablet 50 mg PO QDAY ascorbic acid (vitamin C) [Vitamin C] 500 mg Tablet 500 mg PO QDAY allopurinol 300 mg tablet 300 mg PO QDAY vitamin E 100 unit Tablet 100 unit PO QDAY Linzess 145 mcg capsule 145 mcg PO QDAY Patient Comments: TAKE ONE CAPSULE BY MOUTH EVERY DAY FOR CONSTIPATION pantoprazole [Protonix] 40 mg Tablet,Delayed Release (Dr/Ec) 40 mg PO QDAY 30 Days Qty: 30 2RF Patient Comments: only takes when she needs it Rx Instructions: TAKE ONE TABLET BY MOUTH ONCE A DAY dapagliflozin propanediol [Farxiga] 10 mg tablet 10 mg PO DAILY Patient Comments: TAKE ONE TABLET BY MOUTH EVERY MORNING FOR DIABETES Ozempic 0.25 mg or 0.5 mg (2 mg/3 mL) pen injector 0.25 mg SUBCUT QWEEK Patient Comments: Due today. takes it weekly on Thursday Rx Instructions: Thursday ergocalciferol (vitamin D2) 1,250 mcg (50,000 unit) capsule 50,000 unit PO QWEEK Patient Comments: TAKE ONE CAPSULE BY MOUTH EVERY WEEK VITAMIN 95553 unit weekly Rx Instructions: Sundays ferrous sulfate 325 mg (65 mg iron) tablet,delayed release (DR/EC) 325 mg PO DAILY Patient Comments: TAKE ONE TABLET BY MOUTH EVERY DAY VITAMIN WITH ORANGE JUICE Steffany-Kesha Rx 1-60-300 mg-mg-mcg tablet 1 tab PO DAILY Patient Comments: TAKE ONE TABLET BY MOUTH EVERY DAY VITAMIN bisoprolol fumarate 5 mg tablet 2.5 mg PO DAILY Discontinued lovastatin 20 MG tablet 20 mg PO HS Qty: 0 gemfibrozil 600 mg tablet 600 mg PO QDAY ibuprofen 800 mg tablet 800 mg PO TID PRN (Reason: pain) Qty: 30 0RF Referrals: [facility] [Outside] No Primary/Family,Physician [Primary Care Provider] Patient/Caregiver Discharge Instructions Education Materials: Hypertension and Kidney Disease, Discharge Instructions for Stroke Print Language: Uzbek Stand Alone Forms: Karen Award Info., Patient Portal Info Letter Discharge Order Discharge Orders: Discharge (Routine); Ordered 10/03/25 Ordered By: Marilia Guzman Quality Discharge Quality Measures VTE prophylaxis MD Attestestation MD Attestation I have seen and examined the patient. I was physically present for the galvez portions of the services provided including history, physical exam, diagnosis, treatment plans and orders. I agree with assessment and plan of care as documented by residents. Even though this this note was carefully revised there may still be minor errors in office automation clerk due to voice recognition software. Xavi Rebollar MD
--- NOTE | 2025-10-04 15:34 | PC.SS ---
[facility].
== END 2025-10-03 14:15 | disposition home or self-care (01) | DRG 861 ==
LOC: SERX 12:16 → SERHOLD 13:02 → S2NX 16:02 → S3SX 10-02 21:01
PROVIDERS: Admitting Provider Internal Medicine; Emergency Provider Emergency Medicine; Visit Provider Internal Medicine
DX: R53.1 Weakness (principal); E78.1 Pure hyperglyceridemia; I12.9 Hypertensive chronic kidney disease with stage 1 through stage 4 chronic kidney disease, or unspecified chronic kidney disease; N18.31 Chronic kidney disease, stage 3a; F41.9 Anxiety disorder, unspecified; Z90.12 Acquired absence of left breast and nipple; R13.10 Dysphagia, unspecified; E11.22 Type 2 diabetes mellitus with diabetic chronic kidney disease; E11.65 Type 2 diabetes mellitus with hyperglycemia; F32.A Depression, unspecified; Z79.02 Long term (current) use of antithrombotics/antiplatelets; Z79.82 Long term (current) use of aspirin; Z79.899 Other long term (current) drug therapy; Z79.84 Long term (current) use of oral hypoglycemic drugs; E78.00 Pure hypercholesterolemia, unspecified; Z92.3 Personal history of irradiation; Z90.710 Acquired absence of both cervix and uterus; Z85.3 Personal history of malignant neoplasm of breast
CPT/HCPCS: 36415; 36600; 70450; 70496; 70498; 70553; 71045; 80053; 80061; 80307; 80320; 81001; 82803; 83036; 83735; 83880; 84100; 84439; 84443; 84484; 85025; 85610; 85730; 87635; 92610; 93005; 93225; 93306; 96365; 96375; 97162; 99285; A4649; A9577; J0131; J1200; J1644; J1885; J2405; J2470; J2765; J3475; J7030; J7120; Q9967; A9270; G0480